=== PATIENT | female | born 1980 | race Caucasian/White ===

== ENCOUNTER 2017-06-09 11:03 | Emergency (ER) | payer SELFPAY ==
[~2017-06-09] VITALS: Ht 170.2 cm; Wt 80.7 kg
[~2017-06-09 11:03] MED LIST: ALPR0.5T PO; BUTA1CAP3; CARI250T PO; CYCL10TA9; ONDA4TAB10; PROC-1 PO; SERT100T PO
[2017-06-09] MEDS ORDERED: PROCHLORPERAZINE 10 MG/2ML INJ (COMPAZINE) IM ONE (12:45)
[2017-06-09] MEDS ORDERED: diphenhydrAMINE 50 MG/ML INJ (BENADRYL) IM ONE (12:45)
[2017-06-09] MEDS ORDERED: KETOROLAC 60 MG/2 ML VIAL IM ONE (12:45)
--- NOTE | 2017-06-09 12:48 | ED Headache ---
General Chief Complaint: Head/Cervical Problems Stated Complaint: HEADACHE Nursing Triage Note: AMBULATED TO TRIAGE WITHOUT DIFFICULTY. COMPLAINS OF HEADACHE X6 YEARS THAT HAS BECAME WORSE. HAS NOT TAKEN ANY MEDCIATIONS TO HELP THE HEADACHE ET STATES IT DOES NOT HELP. PT HAS A HX OF HAVING A BRAIN TUMOR REMOVED. Nursing Sepsis Screen: No Definite Risk Source: patient Exam Limitations: no limitations History of Present Illness Date Seen by Provider: Jun 09, 2017 Time Seen by Provider: 12:46 Initial Comments To ER with reports of a headache, nausea, photophobia without vomiting worse than usual for 2-3 days. No history of head injury. 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 Starting 6 years ago she began having frequent headaches. A CT scan found this followed cyst. However since removal of colloid cyst 5 years ago she's had persistent headaches. She states that she's been on a plethora of migraine medication without significant improvement. Timing/Duration: other Severity/Quality: moderate Location: frontal Associated Symptoms: No confusion, No fatigue, nausea/vomiting Allergies and Home Medications Allergies Coded Allergies: Sulfa (Sulfonamide Antibiotics) (Verified Allergy, Unknown, 09/08/15) Home Medications Alprazolam 0.5 Mg Tablet, 0.5 MG PO for ANXIETY, (Reported) Prochlorperazine Maleate 10 Mg Tablet, 10 MG PO Q12H PRN for NAUSEA/VOMITING Prescribed by: HEATHER JONES on 11/08/15 1133 Sertraline HCl 100 Mg Tablet, 100 MG PO DAILY, (Reported) Patient Home Medication List Home Medication List Reviewed: Yes Constitutional: see HPI Eyes: See HPI, Photophobia Ears, Nose, Mouth, Throat: no symptoms reported Respiratory: no symptoms reported Gastrointestinal: nausea Genitourinary: no symptoms reported Musculoskeletal: no symptoms reported Skin: no symptoms reported Psychiatric/Neurological: See HPI Past Rxglvda-Olzywd-Ccxctl Hx Patient Social History Alcohol Use: Denies Use Recreational Drug Use: No Smoking Status: Current Everyday Smoker Type Used: Cigarettes Recent Foreign Travel: No Contact w/Someone Who Travel: No Recent Infectious Disease Expo: No Recent Hopitalizations: No Surgeries Surgeries: Section, Gallbladder, Hysterectomy Neurological Neurological Disorders: Headaches /Migraines Reproductive System Hx Reproductive Disorders: No Psychosocial Behavioral Health Disorders: Anxiety, Depression Family Medical History Significant Family History: No Pertinent Family Hx Physical Exam Vital Signs Vital Signs - First Documented 06/09/17 06/09/17 12:30 13:58 Temp 98.1 Pulse 66 Resp 18 B/P (MAP) 114/79 (91) Pulse Ox 98 O2 Delivery Room Air Capillary Refill : Less Than 3 Seconds General Appearance: WD/WN, no apparent distress HEENT: PERRL/EOMI, normal ENT inspection Neck: non-tender, full range of motion Cardiovascular: regular rate, rhythm, no murmur Respiratory: normal breath sounds, no respiratory distress, no accessory muscle use Gastrointestinal: normal bowel sounds, non tender, soft Extremities: normal range of motion, non-tender Psychiatric: alert, oriented x 3 Crainal Nerves: normal hearing, normal speech, PERRL Skin: normal color, warm/dry Progress/Results/Core Measures Results/Orders My Orders Orders - HEATHER JONES APRN Ketorolac Injection (Toradol Injection) (06/09/17 12:45) Prochlorperazine Injection (Compazine In (06/09/17 12:45) Diphenhydramine Injection (Benadryl Inje (06/09/17 12:45) Ct Head Wo (06/09/17 12:46) Medications Given in ED Current Medications Medications Dose Ordered Sig/Sanjana Route Start Time Stop Time Status Last Admin Dose Admin Diphenhydramine HCl 25 mg ONCE ONCE IM 06/09/17 12:45 06/09/17 12:46 DC 06/09/17 13:32 25 MG Ketorolac Tromethamine 60 mg ONCE ONCE IM 06/09/17 12:45 06/09/17 12:46 DC 06/09/17 13:31 60 MG Prochlorperazine Edisylate 10 mg ONCE ONCE IM 06/09/17 12:45 06/09/17 12:46 DC 06/09/17 13:32 10 MG Vital Signs/I&O Vital Sign - Last 12Hours 06/09/17 06/09/17 06/09/17 06/09/17 12:30 13:31 13:32 13:32 Temp 98.1 98.1 98.1 98.1 Pulse 66 Resp 18 B/P (MAP) 114/79 (91) Pulse Ox 98 06/09/17 13:58 Temp 98.1 Pulse 67 Resp 18 B/P (MAP) 130/95 (91) Pulse Ox 98 O2 Delivery Room Air Blood Pressure Mean: 91 Departure Impression Impression: Primary Impression: Headache Disposition: 01 HOME, SELF-CARE Condition: Stable Departure-Patient Inst. Decision time for Depature: 13:19 Referrals: EUGENE LEBRON DO (PCP/Family) Primary Care Physician Patient Instructions: Headache, Adult (DC) Add. Discharge Instructions: 1. Follow-up with your doctor this week. Return to ER for any worsening. All discharge instructions reviewed with patient and/or family. Voiced understanding. HEATHER JONES APRN Jun 09, 2017 12:48
--- NOTE | 2017-06-09 13:19 | Diagnostic Imaging Report ---
PROCEDURE: CT head without contrast. TECHNIQUE: Multiple contiguous axial images were obtained through the brain without the use of intravenous contrast. INDICATION: Headache. COMPARISON: Comparison is made with prior head CT from 09/08/2015. FINDINGS: The ventricular size and sulcal pattern appear stable. There are postop changes of craniotomy. The postsurgical changes with mild to moderate dilatation of the left frontal horn appears similar to prior exam. Left to right shift of the septum pellucidum is unchanged. There is no sulcal effacement. No midline shift or hemorrhage is detected. The cisterns are patent. The visualized paranasal sinuses are clear. IMPRESSION: Stable noncontrast CT of the brain when compared to prior exam from 09/08/2015. No acute abnormalities detected. Dictated by: Dictated on workstation # [id number]
[2017-06-09 13:58] VITALS: BP 130/95
== END 2017-06-09 13:58 | disposition home or self-care (01) ==
LOC: EDUNIT# 11:03 → ER 11:04
DX: R51 Headache (principal); F41.9 Anxiety disorder, unspecified; F32.9 Major depressive disorder, single episode, unspecified; F17.210 Nicotine dependence, cigarettes, uncomplicated; Z87.59 Personal history of other complications of pregnancy, childbirth and the puerperium; Z90.710 Acquired absence of both cervix and uterus; Z88.2 Allergy status to sulfonamides
CPT/HCPCS: 70450; 96372

== ENCOUNTER 2018-07-28 11:32 | Emergency (ER) | payer OTHER ==
[~2018-07-28] VITALS: Ht 170.2 cm; Wt 81.6 kg
--- OUTSIDE RECORDS SUMMARY | 2018-07-28 11:37 | XMS REPORT ---
Author Author NAIDA MENON Organization [facility] Address [address] [place] [address] Care Team Providers Care Sales Marketing Manager Name Role Phone NAIDA MENON Unavailable PROBLEMS Type Condition ICD9-CM Code [id number] Code Onset Dates Condition Status SNOMED Code Problem Chronic tension-type headache, not intractable G44.229 Active 289294179 Problem Anxiety F41.9 Active 11656164 ALLERGIES Substance Reaction Event Type Date Status Sulfur Unknown Drug Allergy Feb, Active ENCOUNTERS Encounter Location Date Diagnosis [address] [id number] July, Anxiety F41.9 [place] [id number] [place] [id number] July, [address] [id number] July, Anxiety F41.9 [place] [id number] [place] [address] [id number] Jun, Anxiety F41.9 ; High risk medication use Z79.899 ; Chronic tension-type headache, not intractable G44.229 ; Tobacco abuse Z72.0 and Tobacco abuse counseling Z71.[address] [id number] May, Anxiety F41.9 ; High risk medication use Z79.899 ; Chronic tension-type headache, not intractable G44.229 and Controlled substance agreement signed Z79.[address] [address] Feb, Anxiety F41.9 ; Chronic daily headache R51 ; General medical exam Z00.00 and Viral illness B34.9 [place] [address] [place] [id number] [place] [address] Dec, [facility] [id number], [place] [address] Dec, [facility] [id number] [address] Jan, [facility] [id number], [place] [address] Oct, [facility] [id number], [place] [address] Oct, [facility] [id number], [place] [address] Sep, [facility] [id number], [place] [address] Oct, [facility] [id number], [place] [address] Aug, IMMUNIZATIONS No Known Immunizations SOCIAL HISTORY Never Assessed REASON FOR VISIT Establish Care, Flu like symptoms PLAN OF CARE Activity Details Follow Up 4-5 Weeks Reason:anxiety VITAL SIGNS Height 67in in 2017-03-12 Weight 178.5 lbs 2017-03-12 Temperature 97.3 degrees Fahrenheit 2017-03-12 Heart Rate 100 bpm 2017-03-12 Respiratory Rate 20 2017-03-12 BMI 27.95 kg/m2 2017-03-12 Blood pressure systolic 112 mmHg 2017-03-12 Blood pressure diastolic 72 mmHg 2017-03-12 MEDICATIONS Medication Instructions Dosage Frequency Start Date End Date Duration Status Xanax 0.5 MG Orally Twice a day 1 tablet 12h Active Flexeril 10 MG Orally Three times a day 1 tablet as needed 8h Active Zoloft 150 MG Orally Once a day 1 tablet 24h Active RESULTS Name Result Date Reference Range INFLUENZA A & B (IN HOUSE) 2017-03-12 INFLUENZA A Negative INFLUENZA B Negative Control + Lot # [id number] Exp date 05/27/2019 PROCEDURES Procedure Date Ordered Result Body Site INFLUENZA ASSAY W/OPTIC Mar 12, 2017 INSTRUCTIONS MEDICATIONS ADMINISTERED No Known Medications MEDICAL (GENERAL) HISTORY Type Description Date Medical History Anxeity Medical History Depression Surgical History 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
--- OUTSIDE RECORDS SUMMARY | 2018-07-28 11:37 | XMS REPORT ---
Author Author MANUEL DODSON Organization [facility] Address [address] [place] [address] Care Team Providers Care Classified Advertising Manager Name Role Phone MANUEL DODSON Unavailable PROBLEMS Type Condition ICD9-CM Code XSS41-TD Code Onset Dates Condition Status SNOMED Code Problem Chronic tension-type headache, not intractable G44.229 Active 898187023 Problem Anxiety F41.9 Active 78538602 ALLERGIES Substance Reaction Event Type Date Status Sulfur hives Drug Allergy Jun, Active ENCOUNTERS Encounter Location Date Diagnosis [place] [id number] [place] [id number] July, Anxiety F41.9 [facility] [id number] [place] [address] [id number] July, [place] [id number] [place] [address] [id number] July, Anxiety F41.9 [place] [id number] [place] [address] [id number] Jun, Anxiety F41.9 ; High risk medication use Z79.899 ; Chronic tension-type headache, not intractable G44.229 ; Tobacco abuse Z72.0 and Tobacco abuse counseling Z71.6 [facility] [address] [id number] May, Anxiety F41.9 ; High risk medication use Z79.899 ; Chronic tension-type headache, not intractable G44.229 and Controlled substance agreement signed Z79.899 [place] [id number] [place] [address] Feb, Anxiety F41.9 ; Chronic daily headache R51 ; General medical exam Z00.00 and Viral illness B34.9 [place] [id number], [place] [address] Dec, [facility] [id number], [place] [address] Dec, [facility] [id number], [place] [address] Jan, [facility] [id number], [place] [address] Oct, [facility] [id number], [place] [address] Oct, [facility] [id number], [place] [address] Sep, [facility] [id number], [place] [address] Oct, [facility] [id number], [place] [address] Aug, IMMUNIZATIONS No Known Immunizations SOCIAL HISTORY Never Assessed REASON FOR VISIT Anxiety follow up and refills Josh DOLAN PLAN OF CARE Activity Details Follow Up 3 Months and prn Reason:CHM Anxiety VITAL SIGNS Height 67in in 2017-06-18 Weight 182.2 lbs 2017-06-18 Temperature 97.8 degrees Fahrenheit 2017-06-18 Heart Rate 78 bpm 2017-06-18 Respiratory Rate 16 2017-06-18 BMI 28.53 kg/m2 2017-06-18 Blood pressure systolic 138 mmHg 2017-06-18 Blood pressure diastolic 82 mmHg 2017-06-18 MEDICATIONS Medication Instructions Dosage Frequency Start Date End Date Duration Status Xanax 0.5 MG Orally Once a day 1 tablet 24h 28 days Active Zoloft 150 MG Orally Once a day 1 tablet 24h 0 Active Zanaflex 4 MG Orally Three times a day 2 tablet as needed 8h May, Jun, 0 days Active RESULTS No Results PROCEDURES No Known procedures INSTRUCTIONS MEDICATIONS ADMINISTERED No Known Medications MEDICAL (GENERAL) HISTORY Type Description Date Medical History Anxeity Medical History Depression Surgical History 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
--- OUTSIDE RECORDS SUMMARY | 2018-07-28 11:37 | XMS REPORT ---
Author Author MANUEL DODSON Organization [facility] Address [address] [place] [address] Care Team Providers Care Grinding Wheel Dresser Name Role Phone MANUEL DODSON Unavailable PROBLEMS Type Condition ICD9-CM Code [id number] Code Onset Dates Condition Status SNOMED Code Problem Chronic tension-type headache, not intractable G44.229 Active 313853406 Problem Anxiety F41.9 Active 78269950 ALLERGIES No Information ENCOUNTERS Encounter Location Date Diagnosis [place] [id number] [place] [id number] July, Anxiety F41.9 [place] [id number] [place] [address] [id number] July, [place] [id number] [place] [address] [id number] July, Anxiety F41.[address] [id number] Jun, Anxiety F41.9 ; High risk medication use Z79.899 ; Chronic tension-type headache, not intractable G44.229 ; Tobacco abuse Z72.0 and Tobacco abuse counseling Z71.6 [place] [id number] [place] [address] [id number] May, Anxiety F41.9 ; High risk medication use Z79.899 ; Chronic tension-type headache, not intractable G44.229 and Controlled substance agreement signed Z79.899 [facility] [id number] [place] [address] Feb, Anxiety F41.9 ; Chronic daily headache R51 ; General medical exam Z00.00 and Viral illness B34.9 [facility] [id number] [place] [address] Dec, [facility] [id number], [place] [address] Dec, [facility] [id number], [place] [address] Jan, [facility] [id number], [place] [address] Oct, [facility] [id number], [place] [address] Oct, [facility] [id number], [place] [address] Sep, [facility] [id number], [place] [address] Oct, [facility] [id number], [place] [address] Aug, IMMUNIZATIONS No Known Immunizations SOCIAL HISTORY Never Assessed REASON FOR VISIT Refill request PLAN OF CARE VITAL SIGNS MEDICATIONS Medication Instructions Dosage Frequency Start Date End Date Duration Status Zoloft 150 MG Orally Once a day 1 tablet 24h 0 Active Xanax 0.5 MG Orally Once a day 1 tablet 24h 28 days Active RESULTS No Results PROCEDURES No [...]
--- OUTSIDE RECORDS SUMMARY | 2018-07-28 11:37 | XMS REPORT ---
Author Author MANUEL DODSON Organization [facility] Address [address] [place] [address] Care Team Providers Care Size Maker Name Role Phone MANUEL DODSON Unavailable PROBLEMS Type Condition ICD9-CM Code [id number] Code Onset Dates Condition Status SNOMED Code Problem Chronic tension-type headache, not intractable G44.229 Active 895356939 Problem Anxiety F41.9 Active 31005028 ALLERGIES No Information ENCOUNTERS Encounter Location Date Diagnosis [address] [id number] July, Anxiety F41.9 [place] [id number] [place] [address] [id number] July, [place] [id number] [place] [address] [id number] July, Anxiety F41.[address] [id number] Jun, Anxiety F41.9 ; High risk medication use Z79.899 ; Chronic tension-type headache, not intractable G44.229 ; Tobacco abuse Z72.0 and Tobacco abuse counseling Z71.6 [place] [id number] [place] [address] [id number] May, Anxiety F41.9 ; High risk medication use Z79.899 ; Chronic tension-type headache, not intractable G44.229 and Controlled substance agreement signed Z79.899 [facility] [id number] [place] [address] Feb, Anxiety F41.9 ; Chronic daily headache R51 ; General medical exam Z00.00 and Viral illness B34.9 [facility] [id number] [place] [address] Dec, [facility] [id number] [address] Dec, [facility] [address] [address] Jan, [facility] [id number] [address] Oct, [facility] [id number] [address] Oct, [facility] [address] [address] Sep, [facility] [id number] [address] Oct, [facility] [id number] [address] Aug, IMMUNIZATIONS No Known Immunizations SOCIAL HISTORY Never Assessed REASON FOR VISIT Report Medication Prescription PLAN OF CARE VITAL SIGNS MEDICATIONS Unknown Medications RESULTS No Results PROCEDURES No Known procedures [...]
--- OUTSIDE RECORDS SUMMARY | 2018-07-28 11:37 | XMS REPORT ---
Author Author MANUEL DODSON Organization [facility] Address [address] [place] [address] Care Team Providers Care Boot And Shoe Laborer Name Role Phone MANUEL DODSON Unavailable PROBLEMS Type Condition ICD9-CM Code HSR54-JN Code Onset Dates Condition Status SNOMED Code Problem Chronic tension-type headache, not intractable G44.229 Active 911897820 Problem Anxiety F41.9 Active 48444722 ALLERGIES Substance Reaction Event Type Date Status Sulfur Unknown Drug Allergy May, Active ENCOUNTERS Encounter Location Date Diagnosis [place] [id number] [place] [address] [id number] July, Anxiety F41.9 [facility] [id number] [place] [address] [id number] July, [place] [id number] [place] [address] [id number] July, Anxiety F41.9 [address] [id number] [place] [address] [id number] Jun, Anxiety F41.9 ; High risk medication use Z79.899 ; Chronic tension-type headache, not intractable G44.229 ; Tobacco abuse Z72.0 and Tobacco abuse counseling Z71.6 [place] [address] [place] [address] [id number] May, Anxiety F41.9 ; High risk medication use Z79.899 ; Chronic tension-type headache, not intractable G44.229 and Controlled substance agreement signed Z79.899 [place] [id number] [place] [address] Feb, Anxiety F41.9 ; Chronic daily headache R51 ; General medical exam Z00.00 and Viral illness B34.9 [place] [id number] [address] Dec, [facility] [id number] [address] Dec, [facility] [id number] [address] Jan, [facility] [id number] [address] Oct, [facility] [id number] [address] Oct, [facility] [address] [place] [address] Sep, [facility] [id number] [address] Oct, [facility] [id number] [address] Aug, IMMUNIZATIONS No Known Immunizations SOCIAL HISTORY Never Assessed REASON FOR VISIT wanting to transition care, established with [facility] in February, but states she cannot get in fast enough there. She is currently out of Xanax and needing a refill. ginger Murray PLAN OF CARE Activity Details Follow Up 4 Weeks Reason:CHM Anxiety fu VITAL SIGNS Height 67in in 2017-05-21 Weight 178.2 lbs 2017-05-21 Temperature 98.2 degrees Fahrenheit 2017-05-21 Heart Rate 118 bpm 2017-05-21 Respiratory Rate 16 2017-05-21 BMI 27.91 kg/m2 2017-05-21 Blood pressure systolic 142 mmHg 2017-05-21 Blood pressure diastolic 80 mmHg 2017-05-21 MEDICATIONS Medication Instructions Dosage Frequency Start Date End Date Duration Status Zoloft 150 MG Orally Once a day 1 tablet 24h 0 Active Zanaflex 4 MG Orally Three times a day 1 tablet as needed 8h May, May, 0 days Active Xanax 0.5 MG Orally Once a day 1 tablet 24h 28 days Active RESULTS No Results PROCEDURES Procedure Date Ordered Result Body Site COMPLETE CBC W/AUTO DIFF WBC May 21, 2017 COMPREHEN METABOLIC PANEL May 21, 2017 VENIPUNCT, ROUTINE* May 21, 2017 LIPID PANEL May 21, 2017 ASSAY THYROID STIM HORMONE May 21, 2017 No Charge May 21, 2017 DRUG TEST PRSMV DIR OPT OBS May 21, 2017 INSTRUCTIONS MEDICATIONS ADMINISTERED No Known Medications MEDICAL (GENERAL) HISTORY Type Description Date Medical History Anxeity Medical History Depression Surgical History 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
--- OUTSIDE RECORDS SUMMARY | 2018-07-28 11:37 | XMS REPORT ---
Author Author MANUEL DODSON Organization [facility] Address [address] [place] [address] Care Team Providers Care Tobacco Stripping Machine Operator Name Role Phone MANUEL DODSON Unavailable PROBLEMS Type Condition ICD9-CM Code PLH72-FU Code Onset Dates Condition Status SNOMED Code Problem Chronic tension-type headache, not intractable G44.229 Active 402263216 Problem Anxiety F41.9 Active [id number] ALLERGIES No Information ENCOUNTERS Encounter Location Date Diagnosis [address] [id number] July, Anxiety F41.9 [place] [id number] [place] [id number] July, [place] [id number] [place] [id number] July, Anxiety F41.[address] [id number] Jun, Anxiety F41.9 ; High risk medication use Z79.899 ; Chronic tension-type headache, not intractable G44.229 ; Tobacco abuse Z72.0 and Tobacco abuse counseling Z71.6 [place] [id number] [place] [id number] May, Anxiety F41.9 ; High risk medication use Z79.899 ; Chronic tension-type headache, not intractable G44.229 and Controlled substance agreement signed Z79.899 [facility] [id number] [place] [phone] Feb, Anxiety F41.9 ; Chronic daily headache R51 ; General medical exam Z00.00 and Viral illness B34.9 [facility] [id number] [place] [phone] Dec, [facility] [id number] [address] Dec, [facility] [id number] [place] [address] Jan, [facility] [id number] [address] Oct, [facility] [id number], [place] [address] Oct, [facility] [id number] [place] [address] Sep, [facility] [id number] [place] [address] Oct, [facility] [id number] [place] [address] Aug, IMMUNIZATIONS No Known Immunizations SOCIAL HISTORY Never Assessed REASON FOR VISIT Controlled Med Refill PLAN OF CARE VITAL SIGNS MEDICATIONS Medication Instructions Dosage Frequency Start Date End Date Duration Status Xanax 0.5 MG Orally Once a day, must last 28 days 1 tablet 0 days Active RESULTS No Results PROCEDURES [...]
--- OUTSIDE RECORDS SUMMARY | 2018-07-28 11:37 | XMS REPORT | Clinical Summary ---
Author Author [facility] Organization [facility] Address Unknown Phone Unavailable Care Team Providers Care Project Manager Name Role Phone Zain Buitrago MD Unavailable Andrea Hudson DO PCP Peir Evans MD Unavailable Source Comments Some departments are not documenting in the electronic medical record. If you do not see the information that you expected, contact Release of Information in the Health Information Management department at [phone] for further assistance in locating additional records.[facility] Allergies Comments Active Allergy Reactions Severity Noted Date Sulfa (Sulfonamide HIVES 08/24/2012 Antibiotics) Medications End Date Status Medication Sig Dispensed Refills Start Date Active ALPRAZolam (XANAX) 0.5 mg Take 0.5 mg 0 tablet by mouth as Needed. Active cyclobenzaprine Take 10 mg by 0 (FLEXERIL) 10 mg tablet mouth three times daily as needed for Muscle Cramps. Active amitriptyline (ELAVIL) 25 Take 4 Tabs 120 Tab 5 201 mg tablet by mouth at 7 bedtime daily. Take 3 tablets at bedtime for week, then 4 tablets at bedtime for migraine prevention. Active sertraline (ZOLOFT) 100 Take 1.5 135 tablet 3 10/31/201 mg tablet tablets by 7 mouth at bedtime daily. Active prochlorperazine maleate Take 1 tablet 30 tablet 5 (COMPAZINE) 10 mg tablet by mouth 7 every 6 hours as needed. 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 Headache(784.0) 08/26/2012 Resolved Problems Problem Noted Date Resolved Date Colloid cyst of brain 09/10/2012 04/18/2016 Family History Medical History Relation Name Comments Hypertension Brother Mental Illness Brother Seizures Brother Depression Father Depression Mother Heart Disease Mother Hypertension Mother Seizures Mother Asthma Sister Mental Illness Sister Seizures Sister Hypertension Sister Relation Name Status Comments Brother Alive Brother Alive Brother Alive Brother Alive Father Alive Mother Alive Sister Alive Sister Alive Sister Alive Social History Date Tobacco Use Types Packs/Day Years Used Current Every Day Smoker Cigarettes 0.5 15 Smokeless Tobacco: Never Used Alcohol Use Drinks/Week oz/Week Comments No 0 Standard 0.0 quit 2006 drinks or equivalent Sex Assigned at Date Recorded Not on file Industry Job Start Date Occupation Not on file Not on file Not on file Travel End Travel History Travel Start No recent travel history available. Last Filed Vital Signs Time Taken Vital Sign Reading 10/31/2016 3:07 PM CDT Blood Pressure 125/89 10/31/2016 3:07 PM CDT Pulse 84 09/12/2012 12:29 PM CDT Temperature 36.7 C (98.1 F) - Respiratory Rate - 09/12/2012 12:29 PM CDT Oxygen Saturation 96% - Inhaled Oxygen - Concentration 10/31/2016 3:07 PM CDT Weight 86.6 kg (191 lb) 10/31/2016 3:07 PM CDT Height 170.2 cm (5' 7") 10/31/2016 3:07 PM CDT Body Mass Index 29.91 Plan of Treatment Health Maintenance Due Date Last Done Comments PHYSICAL (COMPREHENSIVE) 1989 EXAM HIV SCREENING 1997 DTAP/TDAP VACCINES (1 - 01/03/2000 Tdap) CERVICAL CANCER SCREENING 01/03/2012 INFLUENZA VACCINE 12/15/2018 12/12/2009 Results Not on filefrom Last 3 Months Insurance Type Payer Benefit Subscriber ID Effective Phone Address Plan / Dates Group AETNA AETNA xxxxxxxxxx [id number] CHOICE POS resent II Advance Directives Patient has advance care planning documents, and code status on file. For more information, please contact: [facility] [address] [place] [address] Date Inactivated Comments Code Status Date Activated 09/12/2012 3:46 PM Full Code 09/10/2012 1:35 PM Provider has discussed Code Status No, discussion not w/Patient or Family? necessary based on Dx
--- NOTE | 2018-07-28 11:58 | ED Headache ---
General Chief Complaint: Head/Cervical Problems Stated Complaint: MIGRAINE Nursing Triage Note: PT PRESENTS TO ED WITH COMPLAINTS OF SINUS PRESSURE X 2 WEEKS AND MIGRAINE, HEAD PRESSURE STARTING 2 DAYS AGO. Nursing Sepsis Screen: No Definite Risk Source: patient Exam Limitations: no limitations History of Present Illness Date Seen by Provider: July 28, 2018 Time Seen by Provider: 11:56 Initial Comments To ER with reports of frontal headache sinus pressure for about 2 weeks. She's not had any nasal discharge or fevers. For the past 2 days she's had photophobia and nausea without vomiting and pressure in her head. She has a history of a colloid cyst with surgical resection in about 2012. She does have a history of migraines. Timing/Duration: increasing Severity/Quality: constant, pressure Location: frontal Prior Headaches/Recent Trauma: occasional headaches Associated Symptoms: No confusion, No fatigue, No facial pain, No fever/chills , No flushing; nausea/vomiting; No nasal congestion, No nasal drainage Allergies and Home Medications Allergies Coded Allergies: Sulfa (Sulfonamide Antibiotics) (Verified Allergy, Unknown, 09/08/15) Home Medications Alprazolam 0.5 Mg Tablet, 0.5 MG PO for ANXIETY, (Reported) Prochlorperazine Maleate 10 Mg Tablet, 10 MG PO Q12H PRN for NAUSEA/VOMITING Prescribed by: HEATHER JONES on 11/08/15 1133 Sertraline HCl 100 Mg Tablet, 100 MG PO DAILY, (Reported) Patient Home Medication List Home Medication List Reviewed: Yes Review of Systems Review of Systems Constitutional: see HPI; No chills, No fever Eyes: See HPI, Blurred Vision (intermittently) Ears, Nose, Mouth, Throat: no symptoms reported Respiratory: no symptoms reported Cardiovascular: no symptoms reported Gastrointestinal: nausea Genitourinary: no symptoms reported Musculoskeletal: no symptoms reported Psychiatric/Neurological: Headache Past Fchctsf-Hbsqdp-Gcunkw Hx Patient Social History Alcohol Use: Past History Recreational Drug Use: Yes Drug of Choice: MARIJUANA Smoking Status: Current Everyday Smoker Type Used: Cigarettes Recent Foreign Travel: No Contact w/Someone Who Travel: No Recent Infectious Disease Expo: No Recent Hopitalizations: No Physical Abuse: No Sexual Abuse: No Mistreated: No Fear: No Past Medical History Surgeries: Yes (colloid cyst removal from 3rd ventricle) Section, Gallbladder, Hysterectomy Respiratory: No Cardiac: No Neurological: Yes (HX OF COLLOID CYST ) Headaches /Migraines Reproductive Disorders: No Genitourinary: No Gastrointestinal: No Musculoskeletal: No Endocrine: No HEENT: No Cancer: No Psychosocial: Yes Anxiety, Depression Integumentary: No Blood Disorders: No Family Medical History No Pertinent Family Hx Physical Exam Vital Signs Vital Signs - First Documented 07/28/18 11:47 Temp 97.7 Pulse 87 Resp 20 B/P (MAP) 138/94 (109) Pulse Ox 96 Capillary Refill : Less Than 3 Seconds Height, Weight, BMI Height: 5'7.00" Weight: 180lbs. oz. 81.340001dc; BMI Method:Stated General Appearance: WD/WN, no apparent distress HEENT: PERRL/EOMI, normal ENT inspection, TMs normal Neck: non-tender, full range of motion Respiratory: normal breath sounds, no respiratory distress, no accessory muscle use Gastrointestinal: normal bowel sounds, non tender, soft Psychiatric: alert, oriented x 3 Crainal Nerves: normal hearing, normal speech, PERRL Skin: normal color, warm/dry Progress/Results/Core Measures Results/Orders My Orders Orders - HEATHER JONES APRN Ct Head Wo (07/28/18 11:50) Ketorolac Injection (Toradol Injection) (07/28/18 12:00) Diphenhydramine Injection (Benadryl Inje (07/28/18 12:00) Prochlorperazine Injection (Compazine In (07/28/18 12:00) Medications Given in ED Current Medications Medications Dose Ordered Sig/Sanjana Route Start Time Stop Time Status Last Admin Dose Admin Diphenhydramine HCl 25 mg ONCE ONCE IM 07/28/18 12:00 07/28/18 12:01 DC 07/28/18 12:00 25 MG Ketorolac Tromethamine 30 mg ONCE ONCE IM 07/28/18 12:00 07/28/18 12:01 DC 07/28/18 12:00 30 MG Prochlorperazine Edisylate 10 mg ONCE ONCE IM 07/28/18 12:00 07/28/18 12:01 DC 07/28/18 11:59 10 MG Vital Signs/I&O 07/28/18 11:47 Temp 97.7 Pulse 87 Resp 20 B/P (MAP) 138/94 (109) Pulse Ox 96 Blood Pressure Mean: 109 Departure Impression Primary Impression: Headache Disposition: 01 HOME, SELF-CARE Condition: Stable Departure-Patient Inst. Decision time for Depature: 12:26 Referrals: EUGENE LEBRON DO (PCP/Family) Primary Care Physician Patient Instructions: Headache, Adult (DC) Add. Discharge Instructions: 1. Return to ER for any concerns 2. Follow-up with your doctor next week All discharge instructions reviewed with patient and/or family. Voiced understanding. Work/School Note: Work Release Form Date Seen in the Emergency Department: July 28, 2018 Return to Work: July 29, 2018 HEATHER JONES APRN July 28, 2018 11:57
[2018-07-28] MEDS ORDERED: diphenhydrAMINE 50 MG/ML INJ (BENADRYL) IM ONE (12:00)
[2018-07-28] MEDS ORDERED: PROCHLORPERAZINE 10 MG/2ML INJ (COMPAZINE) IM ONE (12:00)
[2018-07-28] MEDS ORDERED: KETOROLAC 30 MG/ML VIAL IM ONE (12:00)
--- NOTE | 2018-07-28 12:30 | Diagnostic Imaging Report ---
PROCEDURE: CT head without contrast. TECHNIQUE: Multiple contiguous axial images were obtained through the brain without the use of intravenous contrast. Auto Exposure Controls were utilized during the CT exam to meet ALARA standards for radiation dose reduction. INDICATION: Frontal headache. History of previous colloid cyst resection. COMPARISON: 06/09/2017. FINDINGS: Again identified is a focal area of decreased attenuation interposed between the anterior horns of the lateral ventricles in the region of the corpus callosum. This is stable compared to prior exam and may be a sequela of previous colloid cyst resection. Ventricles and cortical sulci are otherwise normal in size and shape. There is no new mass effect or midline shift. There is no new loss of hdz-white matter junction differentiation to suggest acute infarct. There is no evidence of intra- or extra-axial intracranial hemorrhage. Patient is status post previous frontal craniotomy. Bone flap is in satisfactory position. Bony calvarium is otherwise intact. Included portions of the paranasal sinuses show scattered mucosal thickening. Mastoid air cells are clear. IMPRESSION: 1. Stable CT of the head. No new acute intracranial abnormality. No CT evidence of acute infarct, mass, nor hemorrhage. Dictated by: Dictated on workstation # [id number]
[2018-07-28 12:40] VITALS: BP 128/86
== END 2018-07-28 12:40 | disposition home or self-care (01) ==
LOC: EDUNIT# 11:32 → ER 11:33
DX: R51 Headache (principal); F41.9 Anxiety disorder, unspecified; F32.9 Major depressive disorder, single episode, unspecified; F12.10 Cannabis abuse, uncomplicated; F17.210 Nicotine dependence, cigarettes, uncomplicated; Z90.710 Acquired absence of both cervix and uterus; Z86.69 Personal history of other diseases of the nervous system and sense organs; Z98.890 Other specified postprocedural states; Z88.2 Allergy status to sulfonamides
CPT/HCPCS: 70450; 96372

== ENCOUNTER 2019-04-01 10:10 | Emergency (ER) | payer OTHER ==
[~2019-04-01] VITALS: Ht 170 cm; Wt 82.0 kg
--- NOTE | 2019-04-01 10:20 | ED Chest Pain ---
General Stated Complaint: CHEST PAIN Source: patient Exam Limitations: no limitations History of Present Illness Date Seen by Provider: Apr 01, 2019 Time Seen by Provider: 10:16 Initial Comments 39-year-old female presents with epigastric/lower sternal "chest pain" his been there for about a week. Gets worse with deep breath. She reports that woke her up last night. She does not have any shortness of breath. Patient has had a cough, runny nose for over a week or so. She denies any fevers, chills. She denies any wheezing. She did not get diaphoretic with the pain. Pain is not radiating into her arm or her neck. Maybe a little bit of pain in her back. No other complaints at this time Allergies and Home Medications Allergies Coded Allergies: Sulfa (Sulfonamide Antibiotics) (Verified Allergy, Unknown, 09/08/15) Home Medications Alprazolam 0.5 Mg Tablet, 0.5 MG PO for ANXIETY, (Reported) Sertraline HCl 100 Mg Tablet, 100 MG PO DAILY, (Reported) Patient Home Medication List Home Medication List Reviewed: Yes Review of Systems Review of Systems Constitutional: No chills, No dizziness, No fever Respiratory: Cough; Denies Orthopnea, Denies Shortness of Air Cardiovascular: Chest Pain; Denies Edema, Denies Irregular Heart Rate, Denies Lightheadedness, Denies Palpitations, Denies Syncope Gastrointestinal: Denies Abdominal Pain, Denies Diarrhea, Denies Nausea, Denies Vomiting Musculoskeletal: no symptoms reported Skin: no symptoms reported Psychiatric/Neurological: No Symptoms Reported Endocrine: No Symptoms Reported Past Ztpaefm-Jdlubt-Qdtzui Hx Past Med/Social Hx: Reviewed Nursing Past Med/Soc Hx Patient Social History Drug of Choice: MARIJUANA Type Used: Cigarettes Recent Hopitalizations: No Past Medical History Surgeries: Yes (colloid cyst removal from 3rd ventricle) Section, Gallbladder, Hysterectomy Respiratory: No Cardiac: No Neurological: Yes (HX OF COLLOID CYST ) Headaches /Migraines Reproductive Disorders: No Genitourinary: No Gastrointestinal: No Musculoskeletal: No Endocrine: No HEENT: No Cancer: No Psychosocial: Yes Anxiety, Depression Integumentary: No Blood Disorders: No Family Medical History No Pertinent Family Hx Physical Exam Vital Signs Vital Signs - First Documented 04/01/19 10:10 Temp 35.8 Pulse 86 Resp 22 B/P (MAP) 141/98 (112) Pulse Ox 99 O2 Delivery Room Air Capillary Refill : Height, Weight, BMI Height: 5'7.00" Weight: 180lbs. oz. 81.219588ua; BMI Method:Stated General Appearance: No Apparent Distress, WD/WN Respiratory: Chest Non Tender, Lungs Clear, Normal Breath Sounds Cardiovascular: Regular Rate, Rhythm, No Edema, Normal Peripheral Pulses, Other (mild tenderness lower sternum) Gastrointestinal: Soft, Tenderness (minimal tenderness epigastric) Extremity: Normal Capillary Refill, Normal Inspection Neurologic/Psychiatric: Alert, Oriented x3, No Motor/Sensory Deficits, Normal Mood/Affect Skin: Normal Color, Warm/Dry Progress/Results/Core Measures Results/Orders Lab Results Laboratory Tests Test 04/01/19 10:20 Range/Units White Blood Count 6.0 4.3-11.0 10^3/uL Red Blood Count 4.48 4.35-5.85 10^6/uL Hemoglobin 13.8 11.5-16.0 G/DL Hematocrit 41 35-52 % Mean Corpuscular Volume 92 80-99 FL Mean Corpuscular Hemoglobin 31 25-34 PG Mean Corpuscular Hemoglobin Concent 34 32-36 G/DL Red Cell Distribution Width 12.3 10.0-14.5 % Platelet Count 261 130-400 10^3/uL Mean Platelet Volume 10.1 7.4-10.4 FL Neutrophils (%) (Auto) 43 42-75 % Lymphocytes (%) (Auto) 39 12-44 % Monocytes (%) (Auto) 5 0-12 % Eosinophils (%) (Auto) 13 H 0-10 % Basophils (%) (Auto) 1 0-10 % Neutrophils # (Auto) 2.6 1.8-7.8 X 10^3 Lymphocytes # (Auto) 2.4 1.0-4.0 X 10^3 Monocytes # (Auto) 0.3 0.0-1.0 X 10^3 Eosinophils # (Auto) 0.8 H 0.0-0.3 10^3/uL Basophils # (Auto) 0.0 0.0-0.1 10^3/uL Prothrombin Time 13.4 12.2-14.7 SEC INR Comment 1.0 0.8-1.4 Activated Partial Thromboplast Time 31 24-35 SEC Sodium Level 140 135-145 MMOL/L Potassium Level 3.8 3.6-5.0 MMOL/L Chloride Level 104 98-107 MMOL/L Carbon Dioxide Level 27 21-32 MMOL/L Anion Gap 9 5-14 MMOL/L Blood Urea Nitrogen 11 7-18 MG/DL Creatinine 0.86 0.60-1.30 MG/DL Estimat Glomerular Filtration Rate > 60 BUN/Creatinine Ratio 13 Glucose Level 69 L 70-105 MG/DL Calcium Level 9.7 8.5-10.1 MG/DL Corrected Calcium 8.5-10.1 MG/DL Magnesium Level 1.7 1.6-2.4 MG/DL Total Bilirubin 0.3 0.1-1.0 MG/DL Aspartate Amino Transf (AST/SGOT) 18 5-34 U/L Alanine Aminotransferase (ALT/SGPT) 14 0-55 U/L Alkaline Phosphatase 70 40-136 U/L Troponin I < 0.028 <0.028 NG/ML Total Protein 7.8 6.4-8.2 GM/DL Albumin 4.8 H 3.2-4.5 GM/DL My Orders Orders - HERNANDEZ,ELHAM L DO Cbc With Automated Diff (04/01/19 10:21) Magnesium (04/01/19 10:21) Ekg Tracing (04/01/19 10:21) Comprehensive Metabolic Panel (04/01/19 10:21) Protime With Inr (04/01/19 10:21) Partial Thromboplastin Time (04/01/19 10:21) Monitor-Rhythm Ecg Trace Only (04/01/19 10:21) Ed Iv/Invasive Line Start (04/01/19 10:21) Troponin I (04/01/19 10:21) Aspirin Chewable Tablet (Baby Aspirin Ch (04/01/19 10:30) Chest Pa/Lat (2 View) (04/01/19 10:21) Abdomen/Kub 1view (04/01/19 10:21) Medications Given in ED Current Medications Medications Dose Ordered Sig/Sanjana Route Start Time Stop Time Status Last Admin Dose Admin Aspirin 324 mg ONCE ONCE PO 04/01/19 10:30 04/01/19 10:31 DC 04/01/19 10:27 324 MG Vital Signs/I&O 04/01/19 04/01/19 10:10 10:10 Temp 35.8 Pulse 86 Resp 22 B/P (MAP) 141/98 (112) Pulse Ox 99 O2 Delivery Room Air Room Air Progress Progress Note : Time: 11:03 Progress Note Patient's chest x-ray shows signs of possible sternal body fracture. However patient denies any trauma to the area. We discussed CT in the ER versus outpatient follow-up. At this time patient will follow-up for further evaluation outpatient setting since I will be no acute treatment for a sternal body fracture. I did discuss the importance of her to follow-up with this especially in light of no trauma that patient can recall. Patient does not have any abnormal lab findings, EKG or other symptoms at this time.. Departure Impression Primary Impression: Closed fracture of body of sternum Qualified Codes: S22.22XA - Fracture of body of sternum, initial encounter for closed fracture Disposition: 01 HOME, SELF-CARE Condition: Stable Departure-Patient Inst. Referrals: EUGENE LEBRON DO (PCP/Family) Primary Care Physician Patient Instructions: Chest Pain That Is Not Caused by the Heart (DC), Pleurit ic Chest Pain (DC), Acid Reflux (Gastroesophageal Reflux Disease), Adult (DC) Add. Discharge Instructions: Emergency department focuses on treating and ruling out life-threatening diseases. Whenever possible, a diagnosis is given. However, most patients are given an impression based on their history, physical exam, and workup during your brief time in the ER. Information about probable diagnosis and other educational material has been provided. Please take the time to read and under stand this information. It is very important that you follow up with a physician as discussed during the visit today. Failure to adhere to your follow-up instructions may lead to severe disability, injury, or so please make sure to keep your appointments or obtain one as requested. Please keep in mind the emergency department is not designed to your primary care or "family doctor" and nonurgent issues are best evaluated by an outpatient physician ELHAM HERNANDEZ DO Apr 01, 2019 10:20
[2019-04-01 10:29] LABS: BASOPHILS % (AUTO) 1 % (0-10); EOSINOPHILS # (AUTO) 0.8 10^3/uL (0.0-0.3); EOSINOPHILS % (AUTO) 13 % (0-10); HEMATOCRIT 41 % (35-52); HEMOGLOBIN 13.8 G/DL (11.5-16.0); LYMPHOCYTES # (AUTO) 2.4 X 10^3 (1.0-4.0); LYMPHOCYTES % (AUTO) 39 % (12-44); MEAN CORPUSCULAR HEMOGLOBIN 31 PG (25-34); MEAN CORPUSCULAR HGB CONC 34 G/DL (32-36); MEAN CORPUSCULAR VOLUME 92 FL (80-99); MEAN PLATELET VOLUME 10.1 FL (7.4-10.4); MONOCYTES # (AUTO) 0.3 X 10^3 (0.0-1.0); MONOCYTES % (AUTO) 5 % (0-12); NEUTROPHILS # (AUTO) 2.6 X 10^3 (1.8-7.8); NEUTROPHILS % (AUTO) 43 % (42-75); PLATELET COUNT 261 10^3/uL (130-400); RED CELL DISTRIBUTION WIDTH 12.3 % (10.0-14.5)
[2019-04-01] MEDS ORDERED: ASPIRIN 81 MG CHEW (CHILDREN'S ASA) PO ONE (10:30)
[2019-04-01 10:49] LABS: ALANINE AMINOTRANSFERASE 14 U/L (0-55); ALBUMIN 4.8 GM/DL (3.2-4.5); ALKALINE PHOSPHATASE 70 U/L (40-136); BILIRUBIN,TOTAL 0.3 MG/DL (0.1-1.0); BUN/CREATININE RATIO 13; CALCIUM 9.7 MG/DL (8.5-10.1); CARBON DIOXIDE 27 MMOL/L (21-32); CHLORIDE 104 MMOL/L (98-107); CREATININE SERUM 0.86 MG/DL (0.60-1.30); GFR ESTIMATED > 60; GLUCOSE 69 MG/DL (70-105); MAGNESIUM 1.7 MG/DL (1.6-2.4); POTASSIUM 3.8 MMOL/L (3.6-5.0); SODIUM 140 MMOL/L (135-145); TOTAL PROTEIN 7.8 GM/DL (6.4-8.2)
[2019-04-01 10:51] LABS: PROTHROMBIN TIME PATIENT 13.4 SEC (12.2-14.7)
--- NOTE | 2019-04-01 11:03 | Diagnostic Imaging Report ---
INDICATION: Epigastric pain and cough. TIME OF EXAM: 10:57 AM FINDINGS: Single view of the abdomen shows moderate stool throughout the colon. The bowel gas pattern is nonobstructed. No pathologic calcifications are seen. IMPRESSION: Moderate stool. No other significant abnormality is detected. Dictated by: Dictated on workstation # [id number]
--- NOTE | 2019-04-01 11:04 | Diagnostic Imaging Report ---
INDICATION: Epigastric pain, cough and sternal pain. TIME OF EXAM: 10:54 AM No prior studies are available for comparison. FINDINGS: The heart size is normal. Lungs are clear. Pulmonary vascularity is normal. There is no effusion or pneumothorax. There is a lucency in the region of the mid sternal body on the lateral view suggestive of a sternal fracture with mild displacement. Acuity is indeterminate. IMPRESSION: No acute cardiopulmonary process is detected. There are findings suggestive of a sternal body fracture. CT through the chest would be useful for further evaluation. Dictated by: Dictated on workstation # [id number]
[2019-04-01 11:19] VITALS: BP 112/89
== END 2019-04-01 11:15 | disposition home or self-care (01) ==
LOC: EDUNIT# 10:11 → ER 10:12
DX: S22.22XA Fracture of body of sternum, initial encounter for closed fracture (principal); G43.909 Migraine, unspecified, not intractable, without status migrainosus; F41.9 Anxiety disorder, unspecified; F32.9 Major depressive disorder, single episode, unspecified; Z88.2 Allergy status to sulfonamides; Z90.710 Acquired absence of both cervix and uterus; X58.XXXA Exposure to other specified factors, initial encounter
CPT/HCPCS: 36415; 71046; 74018; 80053; 83735; 84484; 85025; 85610; 85730; 93005; 93041

== ENCOUNTER 2019-08-24 12:32 | Emergency (ER) | payer OTHER ==
[~2019-08-24] VITALS: Ht 170.1 cm; Wt 77.6 kg
[~2019-08-24 12:32] MED LIST changes: +ONDA-105; -ONDA4TAB10
[2019-08-24] MEDS ORDERED: NS IV 1000 ML 1,000 ML IV SCH (14:02)
[2019-08-24] MEDS ORDERED: diphenhydrAMINE 50 MG/ML INJ (BENADRYL) IM ONE (14:15)
[2019-08-24] MEDS ORDERED: KETOROLAC 30 MG/ML VIAL IVP ONE (14:15)
[2019-08-24] MEDS ORDERED: PROMETHAZINE INJ 25 MG/ML (PHENERGAN) AMP IVP ONE (14:15)
--- NOTE | 2019-08-24 14:19 | ED Headache ---
General Chief Complaint: Head/Cervical Problems Stated Complaint: HEADACHE Nursing Triage Note: Headache x couple of days. Worse today. Pain 10/10 Nursing Sepsis Screen: No Definite Risk Source: patient Exam Limitations: no limitations (DEANNA BEE MED STUDENT) History of Present Illness Date Seen by Provider: Aug 24, 2019 Time Seen by Provider: 13:27 Initial Comments Ms. Sparks is a 39 year old female that presents to the emergency department with complaints of a headache. The headaches are daily and have occurred for several years. This headache began to worsen about 5 days ago, she states this morning it was a 10/10 pain. She describes the pain as a pressure over the posterior frontal lobe. 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 The headaches were present prior to the surgery and have remained unchanged in duration, frequency, and character. She admits to blurred vision, dizziness, nausea, light and sound sensitivity but denies neck pain/stiffness and confusion. She states the character of this headache is common for her, she will typically be seen in the ED when the pain gets to a 10/10. Last head CT was done 07/2018 and was stable. Her neurologist is Dr. Medrano in [place]. Location: frontal, parietal Prior Headaches/Recent Trauma: chronic headaches Modifying Factors: worse with exposure to light; improves with rest Associated Symptoms: No confusion; fatigue; No fever/chills, No loss of co nsciousness; nausea/vomiting; No numbness in legs/feet, No stiff neck; vision changes (DEANNA BEE MED STUDENT) Allergies and Home Medications Allergies Coded Allergies: Sulfa (Sulfonamide Antibiotics) (Verified Allergy, Unknown, 09/08/15) Home Medications Alprazolam 0.5 Mg Tablet, 0.5 MG PO for ANXIETY, (Reported) Sertraline HCl 100 Mg Tablet, 100 MG PO DAILY, (Reported) Patient Home Medication List Home Medication List Reviewed: Yes (DEANNA BEE MED STUDENT) Review of Systems Review of Systems Constitutional: No chills; dizziness; No fever Eyes: Blurred Vision Ears, Nose, Mouth, Throat: no symptoms reported Respiratory: no symptoms reported Cardiovascular: no symptoms reported Gastrointestinal: No abdominal pain, No constipation, No diarrhea; nausea; No vomiting Genitourinary: no symptoms reported Musculoskeletal: No back pain, No neck pain Skin: no symptoms reported Psychiatric/Neurological: Anxiety, Depressed, Headache; Denies Numbness, Denies Paresthesia (DEANNA BEE MED STUDENT) Past Bwqotds-Wjgige-Rstgnk Hx Patient Social History Alcohol Use: Past History (recovering alcoholic ) Recreational Drug Use: Yes Drug of Choice: MARIJUANA Smoking Status: Current Everyday Smoker Type Used: Cigarettes (1 PPD) Recent Foreign Travel: No Contact w/Someone Who Travel: No Recent Infectious Disease Expo: No Recent Hopitalizations: No (DEANNA BEE MED STUDENT) Past Medical History Surgeries: Yes (colloid cyst removal from 3rd ventricle) Section, Gallbladder, Hysterectomy Respiratory: No Cardiac: No Neurological: Yes (HX OF COLLOID CYST ) Headaches /Migraines Reproductive Disorders: No Genitourinary: No Gastrointestinal: No Musculoskeletal: No Endocrine: No HEENT: No Cancer: No Psychosocial: Yes Anxiety, Depression Integumentary: No Blood Disorders: No (DEANNA BEE MED STUDENT) Family Medical History No Pertinent Family Hx (DEANNA BEE MED STUDENT) Physical Exam Vital Signs Vital Signs - First Documented 08/24/19 13:08 Temp 36.8 Pulse 92 Resp 20 B/P (MAP) 119/82 (94) Pulse Ox 96 O2 Delivery Room Air (CARLYN CASTILLO MD) Vital Signs Capillary Refill : Less Than 3 Seconds (DEANNA BEE MED STUDENT) Height, Weight, BMI Height: 5'7.00" Weight: 180lbs. oz. 81.614766wd; 26.00 BMI Method:Stated General Appearance: WD/WN, mild distress HEENT: PERRL/EOMI Neck: non-tender, full range of motion, supple Cardiovascular: regular rate, rhythm, no murmur Respiratory: chest non-tender, lungs clear, normal breath sounds, no respiratory distress, no accessory muscle use Back: no vertebral tenderness Psychiatric: alert, oriented x 3 Crainal Nerves: normal hearing, normal speech, PERRL Motor/Sensory: no motor deficit, no sensory deficit Skin: normal color, warm/dry (DEANNA BEE MED STUDENT) Progress/Results/Core Measures Results/Orders My Orders Orders - CARLYN CASTILLO MD Ed Iv/Invasive Line Start (08/24/19 14:02) Ns Iv 1000 Ml (Sodium Chloride 0.9%) (08/24/19 14:02) Ketorolac Injection (Toradol Injection) (08/24/19 14:15) Promethazine Injection (Phenergan Injec (08/24/19 14:15) Diphenhydramine Injection (Benadryl Inje (08/24/19 14:15) Diphenhydramine Injection (Benadryl Inje (08/24/19 14:45) Fentanyl Injection (Sublimaze Injection (08/24/19 15:45) Methylprednisolone Sod Succ (Solu-Medrol (08/24/19 15:45) (CARLYN CASTILLO MD) Medications Given in ED (CARLYN CASTILLO MD) Vital Signs/I&O 08/24/19 08/24/19 13:08 16:20 Temp 36.8 36.8 Pulse 92 85 Resp 20 20 B/P (MAP) 119/82 (94) 115/85 (94) Pulse Ox 96 100 O2 Delivery Room Air Room Air (CARLYN CASTILLO MD) Blood Pressure Mean: 94 Progress Progress Note : Time: 15:34 Progress Note Patient states pain is a 9/10 after receiving Benadryl, Toradol, promethazine, and IV fluids. Patient's headache resolving and much improved after she receiving fentanyl and methylprednisolone. Patient instructed to increase fluid intake and rest in dark quiet room. Pain management discussed. Follow up with neurologist (DEANNA BEE,MED STUDENT) Departure Impression Primary Impression: Recurrent headache Disposition: 01 HOME, SELF-CARE Condition: Improved Departure-Patient Inst. Decision time for Depature: 16:11 (CARLYN CASTILLO MD) Referrals: EUGENE LEBRON DO (PCP/Family) Primary Care Physician Patient Instructions: Headache, Adult Add. Discharge Instructions: Drink plenty of clear liquids. Rest in a quiet, calm, dark environment for the remainder of the day. You may take ibuprofen up to 600 mg every 6 hours and/or Tylenol (acetaminophen) up to 1000 mg every 6 hours as needed for pain. You may continue using Phenergan as previously prescribed. Follow-up with your primary care provider and/or headache specialist within the next 1-2 weeks. Return to care if you have worsening symptoms. All discharge instructions reviewed with patient and/or family. Voiced under standing. I have personally seen, examined, and interviewed this patient along with CONOR Mancilla. I agree with her history, physical, assessment, and documentation. Patient's headache successful improved after above-described therapies. Exam: Gen.: Alert, oriented, no acute distress HEENT: Normocephalic and atraumatic, mucous membranes moist, pupils equally round and reactive Heart: Regular rate and rhythm without murmur Lungs: Clear to auscultation bilaterally with normal effort Neuropsych: Alert, oriented, no gross focal deficits, mood and affect normal (CARLYN CASTILLO MD) DEANNA BEE,MED STUDENT Aug 24, 2019 14:19 CARLYN CASTILLO MD Aug 24, 2019 16:13
[2019-08-24] MEDS ORDERED: diphenhydrAMINE 50 MG/ML INJ (BENADRYL) IVP ONE (14:45)
--- OUTSIDE RECORDS SUMMARY | 2019-08-24 15:04 | XMS REPORT ---
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 Role Phone Migration, Doctor Unavailable Unavailable PROBLEMS Type Condition ICD9-CM Code [id number] Code Onset Dates Condition S tatus SNOMED Code Problem Anxiety F41.9 Active 19643005 Problem Chronic tension-type headache, not intractable G44 .229 Active [id number] ALLERGIES No Information ENCOUNTERS Encounter Location Date Diagnosis [place] [address] [phone] Mar, [id number] [place] [address], [place] S [id number] July, Anxiety F41.9 [facility] [address] [place] [id number] [place] [address], [place] S [id number] July, [place] [id number] [place] [address], [place] S [id number] July, Anxiety F41.9 [place] [id number] [place] [address], K S [id number] Jun, Anxiety F41.9 ; High risk medication use Z79.899 ; Chronic tension-type headache, not intractable G44.229 ; Tobacco abuse Z72.0 and Tobacco abuse counseling Z71.6 [place] [id number] [place] [address], K S [id number] May, Anxiety F41.9 ; High risk medication use Z79.899 ; Chronic tension-type headache, not intractable G44.229 and Controlled substance agreement signed Z79.899 [place] [address] [address] [place] [id number] [place] [phone] Feb, Anxiety F41.9 ; Chronic iwona y headache R51 ; General medical exam Z00.00 and Viral illness B34.9 [place] [id number] [place] [id number] [place] [phone] Dec, [facility] [address] [id number] [address] [place] [phone] Dec, [facility] [address] [id number] [address] [place] [phone] Jan, [facility] [address] [id number] [address] [place] [phone] Oct, [facility] [address] [id number] [address] [place] [phone] Oct, [facility] [address] [facility] [id number] [address] [place] [phone] Sep, [facility] [address] [facility] [id number] [address] [place] [phone] Oct, [facility] [address] [facility] [id number] [address] [place] [phone] Aug, IMMUNIZATIONS No Known Immunizations SOCIAL HISTORY Never Assessed REASON FOR VISIT [facility] [place] PLAN OF CARE VITAL SIGNS MEDICATIONS Unknown [...]
--- OUTSIDE RECORDS SUMMARY | 2019-08-24 15:04 | XMS REPORT | Clinical Summary ---
Author Author [facility] Organization [facility] Address Unknown Phone Unavailable Care Team Providers Care Hot Cell Technician Name Role Phone Zain Buitrago MD Unavailable Andrea Hudson DO PCP Peri Evans MD Unavailable Source Comments Some departments are not documenting in the electronic medical record. If you d o not see the information that you expected, contact Release of Information in [facility] [employer] Information Management department at [phone] for further assistan ce in locating additional records.[facility] Allergies Comments Active Allergy Reactions Severity [...] (ZOLOFT) 100 Take 1.5 135 tablet 3 201 mg tablet tablets by 7 mouth at bedtime daily. Active prochlorperazine maleate Take 1 tablet 30 tablet 5 (COMPAZINE) 10 mg tablet by mouth 7 every 6 hours as needed. Active Problems Problem Noted Date Migraine without aura and without status migrainosus, not intractable 01/29/2016 Colloid cyst of third ventricle 09/10/2012 Headache(784.0) [...] Cigarettes 0.5 15 Smokeless Tobacco: Never Used Drinks/Week oz/Week Comments Alcohol Use 0 Standard drinks or equivalent 0.0 quit 2006 No Sex Assigned at Date Recorded Not on file Industry Job Start Date Occupation Not on file Not on file Not on file Travel End Travel History Travel Start No recent travel history available. Last Filed Vital Signs Reading Time Taken Comments Vital Sign 125/89 10/31/2016 3:07 PM CDT Blood Pressure 84 10/31/2016 3:07 PM CDT Pulse 36.7 C (98.1 F) 09/12/2012 12:29 PM CDT Temperature - - Respiratory Rate 96% 09/12/2012 12:29 PM CDT Oxygen Saturation - - Inhaled Oxygen Concentration 86.6 kg (191 lb) 10/31/2016 3:07 PM CDT Weight 170.2 cm (5' 7") 10/31/2016 3:07 PM CDT Height 29.91 10/31/2016 3:07 PM CDT Body Mass Index Plan of Treatment Health Maintenance Due Date Last Done Comments HIV SCREENING 1997 DTAP/TDAP VACCINES (1 - 01/03/2000 Tdap) HEPATITIS C SCREENING 01/03/2000 PHYSICAL (COMPREHENSIVE) 01/03/2000 EXAM CERVICAL CANCER SCREENING 2003 INFLUENZA VACCINE 12/16/2019 12/12/2009 Results Not on filefrom Last 3 Months Insurance Type Payer Benefit Subscriber ID Effective Phone Address Plan / Dates Group AETNA AETNA xxxxxxxxxx 2018-P CHOICE POS resent II [id number] (Home) [place] [id number] Advance Directives Patient Monitoring Specialist Explanation Type Date Recorded Advance 12/03/2012 3:43 PM Directive/DPOA Date Inactivated Comments Code Status Date Activated 09/12/2012 3:46 PM Full Code 09/10/2012 1:35 PM Provider has discussed Code Status No, discussion no t w/Patient or Family? necessary based on Dx
--- OUTSIDE RECORDS SUMMARY | 2019-08-24 15:04 | XMS REPORT ---
Author Author [facility] [employer] [facility] [employer] [facility] [place] Address [address] [address] Care Team Providers Care General Teller Name Role Phone NO, LOCAL PHYSICIAN Unavailable Unavailable EUGENE LEBRON Unavailable YUNAIDA Calderon Unavailable DEGRAFFENREID MAE, MANUEL Unavailable DEGRAFFENREID MAE, MANUEL Unavailable DEGRAFFENREID MAE, MANUEL Unavailable DEGRAFFENREID MAE, MANUEL Unavailable DEGRAFFENREID MAE, MANUEL Unavailable EUGENE LEBRON PCP Migration, Doctor Unavailable Unavailable REMEDIOS PAULA MD Unavailable Unavailable HEATHER JONES APRN Unavailable Unavailable GREYSON ANDRADE Unavailable Unavailable GREYSON ANDRADE Unavailable Unavailable GREYSON ANDRADE Unavailable Unavailable ELHAM HERNANDEZ DO Unavailable Unavailable EUGENE LEBRON PCP Unavailable Unavailable Unavailable Unavailable Unavailable Unavailable Allergies The data below is from unstructured sources Allergen Type Severity Reaction Last Updated Verified Status Sulfa (Sulfonamide Antibiotics) ([id number]) Allergy Unknown September 07 201 6 Yes Active Medications The data below is from unstructured sources Unknown Medications Unknown Medications Unknown Medications No Known Medications No Known Medications No Known Medications Problems Active Problems Problem Normalized Date Last Normalized Normalized Provider Fa cility Classification Problem(s) Recorded Problem Problem Sta tus Duration Residual Acquired Episodic Active HEATHER COLON Via codes; absence of [place] unclassified both cervix Hospital - (6 sources.) and uterus [place] ([address]) Allergic Allergy status Episodic Active HEATHER COLON V ia reactions (8 to [place]ra sources.) sulfonamides Hospital - status [place] ([address]) Nonspecific Chest pain, Episodic Active ELHAM HERNANDEZ , [facility] Via chest pain (3 unspecified DO [place]ra sources.) Hospital - [place] ([address]448) Other Closed Episodic Active EUGENE EATON [place] V ia fractures (1 [place] [address] [facility] source.) [facility] (79277) External cause Exposure to Episodic Active ELHAM HERNANDEZ , V [facility] Via codes: other DO [place] Natural/enviro specified Hospital - nment (3 factors, [place] sources.) initial (04289) encounter Other Fracture of Episodic Active ELHAM HERNANDEZ , [facility] Vi a fractures (3 body of DO [place]ra sources.) stern, Hospital - initial [place] encounter for (42365) closed fracture Mood disorders Major Chronic Active ELHAM HERNANDEZ , [facility] Via (3 sources.) depressive DO [place] disorder, Hospital - single [place] episode, (08593) unspecified Substance-rela Nicotine Chronic Active HEATHER JONES [facility] Vi a yelena disorders dependence, [facility] (6 sources.) cigarettes, Hospital - uncomplicated [place] Translations: (70301) [ CANNABIS ABUSE, UNCOMPLICATED, NICOTINE DEPENDENCE, CIGARETTES, UNCOMPL] Residual Personal Episodic Active HEATHER JONES [facility] Via codes; history of [place] unclassified other Hospital - (2 sources.) complications [place] of , ([address]) childbirth and the puerperium Pleurisy; Pleurisy Episodic Active EUGENE EATON [place] V ia pneumothorax; [address] [facility] pulmonary [facility] collapse (1 (01720) source.) Past or Other Problems Problem Normalized Date Last Normalized Normalized Provider Fa cility Classification Problem(s) Recorded Problem Problem Sta tus Duration Mood disorders Major no information no information HEATHER HALL [facility] Via (5 sources.) depressive [place] disorder, Hospital - single [place] episode, (39606) unspecified Residual Other no information no information HEATHER JONES V [facility] Via codes; specified [place] unclassified postprocedural Hospital - (1 source.) [facility] (95690) Other nervous Personal Episodic Completed HEATHER JONES [facility] Via system history of [place] disorders (1 other diseases Hospital - source.) of the nervous [place] system and (74315) sense organs Procedures Procedure Normalized Procedure Procedure Result Performer Facility Date 07-28-2018 CT of head without no information HEATHER KWON S [place] Via [facility] ([address]) 04-01-2019 Diagnostic radiography no information no name [place] [facility] of chest, combined [facility] (21971) and lateral 04-01-2019 Electrocardiographic no information no name [facility] procedure [facility] (62759) 04-01-2019 Radiography of no information no name [facility] [id number] [facility] (38484) Immunizations Normalized Immunization Date Notes Care Provider Facili ty Immunization vaccine no information EUGENE LEBRON [address] [place] Vi a Translations: [ [facility] vaccine] (00653) Results Test Name Value Interpretation Reference Range Date Time Fa cility (Normalized) (Normalized) (Medline Reference) thyroid on 2017-05-21 Thyrotropin Qn 0.70 m[IU]/L (N) 0.4 - 4 m[IU]/L [facility] (45691) other on 2017-05-21 Albumin/Globulin 1.7 (N) [facility] mass ratio [facility] (95231) Cholesterol in 158 (H) [facility] LDL mass conc [facility] (34529) Cholesterol non 181 (H) [facility] HDL mass conc [facility] (73918) Cholesterol.tota 5.1 (H) [facility] l/Cholesterol in [facility] HDL mass ratio [facility] (60046) Globulin 2.9 (N) [facility] Calculated mass [facility] conc (S) [facility] (89148) MDMA [id number]~02/03 (no code) [facility] 18~Pos~neg~neg~n [facility] eg~neg~neg~neg~n [facility] eg~neg~neg~neg~n (99542) eg~neg~neg metabolic panel on 2017-05-21 Albumin mass 5.0 g/dL (N) 3.4 - 5.4 g/dL [facility] (94446) ALP enzyme 71 U/L (N) 44 - 147 U/L [facility] alth act/vol [facility] (44642) ALT enzyme 13 U/L (N) 4 - 40 U/L [facility] act/vol [facility] (88835) AST enzyme 16 U/L (N) 10 - 34 U/L [facility] act/vol [facility] (94753) Bilirubin mass 0.4 mg/dL (N) 0.1 - 1.2 mg/dL [facility] (27953) Calcium mass 10.6 mg/dL (H) 8.5 - 10.2 mg/dL [facility] (79428) Chloride molar 103 mmol/L (N) 95 - 106 mmol/L [facility] (61569) CO2 molar conc 24 mmol/L (N) 23 - 29 mmol/L [facility] (26714) Creatinine mass 0.90 mg/dL (N) [facility] (02087) GFR/1.73 sq M 96 (N) 90 - 120 [facility] predicted among mL/min/{1.73_m2} mL/min/{1.73_m2} [facility] MDRD [facility] rate/area (20706) (S/P/Bld) GFR/1.73 sq 83 (N) 90 - 120 [facility] M.predicted MDRD mL/min/{1.73_m2} mL/min/{1.73_m2} [facility] rate/[facility] (82014) Glucose mass 97 mg/dL (N) 60 - 125 mg/dL [facility] (82467) Potassium molar 4.1 mmol/L (N) 3.7 - 5.2 mmol/L [facility] (42663) Protein mass 7.9 g/dL (N) 6.4 - 8.3 g/dL [facility] (84031) Sodium molar 138 mmol/L (N) 135 - 145 mmol/L [facility] (41204) Urea nitrogen 11 mg/dL (N) 7 - 20 mg/dL [facility] (09383) Urea NOT APPLICABLE (no code) [facility] nitrogen/Creatin [facility] ine mass ratio [facility] (91921) hematology on 2017-05-21 Basophils Auto 0.063 10*3/uL (N) 0 - 0.3 10*3/uL [facility] #/vol (Bld) [facility] (41763) Basophils/100 0.9 % (N) 0.5 - 1 % [facility] alth WBC Auto (Bld) [facility] (30466) Eosinophils Auto 0.371 10*3/uL (N) 0.05 - 0.5 [facility] #/vol (Bld) 10*3/uL [facility] (90633) Eosinophils/100 5.3 % (N) 1 - 4 % [facility] WBC Auto (Bld) [facility] (41581) Erythrocyte 12.1 % (N) 11.6 - 14.6 % [facility] ealth distribution [facility] Auto Ratio [facility] (RBC) (57192) Hematocrit Auto 43.3 % (N) 36.1 - 50.3 % [facility] Volume Fraction [facility] (Bld) [facility] (53636) Hemoglobin mass 15.0 g/dL (N) 12.1 - 17.2 g/dL [facility] conc (Bld) [facility] (96279) Lymphocytes Auto 1.792 10*3/uL (N) 0.9 - 2.9 [facility] #/vol (Bld) 10*3/uL [facility] (11258) Lymphocytes/100 25.6 % (N) 20 - 40 % [facility] WBC Auto (Bld) [facility] (86469) MCH Auto Entitic 30.5 pg (N) 27 - 31 pg [facility] mass (RBC) [facility] (92266) MCHC Auto mass 34.6 g/dL (N) 32 - 36 g/dL [facility] conc (RBC) [facility] (72054) MCV Auto Entitic 88.2 fL (N) 80 - 100 fL [facility] volume (RBC) [facility] (71859) Monocytes Auto 0.497 10*3/uL (N) 0.3 - 0.9 [facility] #/vol (Bld) 10*3/uL [facility] (79493) Monocytes/100 7.1 % (N) 2 - 8 % [facility] WBC Auto (Bld) [facility] (24664) Neutrophils Auto 4.277 10*3/uL (N) 1.7 - 7 10*3/uL [facility] #/vol (Bld) [facility] (51563) Neutrophils/100 61.1 % (N) 40 - 60 % [facility] WBC Auto (Bld) [facility] (25251) Platelet mean 11.1 fL (N) 7.2 - 11.7 fL [facility] volume Auto [facility] (Bld) (68419) Platelets Auto 246 10*3/uL (N) 150 - 450 [facility] H ealth #/vol (Bld) 10*3/uL [facility] (49625) RBC Auto #/vol 4.91 10*6/uL (N) 4.2 - 6.1 [facility] Health (Bld) 10*6/uL [facility] (13121) WBC Auto #/vol 7.0 10*3/uL (N) 3.5 - 10.5 [facility] H ealth (Bld) 10*3/uL [facility] (91743) cardiac on 2017-05-21 Cholesterol in 44 mg/dL (L) [facility] Healt h HDL mass conc [facility] (59701) Cholesterol mass 225 mg/dL (H) 180 - 200 mg/dL [facility] conc [facility] (56920) Triglyceride 115 mg/dL (N) 0 - 150 mg/dL [facility] mass conc [facility] (70896) Vital Signs The data below is from unstructured sources Vital Response Date/Time Temperature (Fahrenheit) 96.9 degree s F (97.6 - 99.5) 11/08/2015 10:50am Temperature (Calculated Celsius) 36. 35298 degrees C (36.4 - 37.5) 11/08/2015 10:50am Temperature Source Temporal 11/08/2015 10:50am Pulse Rate (adult) 78 bpm (60 - 90) 11/08/2015 10:50am Respiratory Rate 16 bpm (12 - 24) 11/08/2015 10:50am O2 Sat by Pulse Oximetry 98 % (88 - 100) 11/08/2015 10:50am Blood Pressure 132/96 mm Hg 11/08/2015 10:50am Blood Pressure Mean 108 mm Hg 11/08/2015 10:50am Pain Numeric Pain Scale 10-Worst Possible Pain 11/08/2015 11:24am Height (Feet) 5 feet 10:50am Height (Inches) 7 inches 11/08/2015 10:50am Height (Calculated Centimeters) 170. 595762 cm 11/08/2015 10:50am Weight (Pounds) 180 pounds 11/08/2015 10:50am Weight (Calculated Grams) 06248.627 gm 11/08/2015 10:50am Weight (Calculated Kilograms) 81.646 627 kilograms 11/08/2015 10:50am Capillary Refill Capillary Refill Less Than 3 Seconds 11/08/2015 10:50am Height 5 ft 7 in Weight 180 lb Body Mass Index 28.2 kg/m^2 Vital Response Date/Time Temperature (Fahrenheit) 96.8 degree s F (97.6 - 99.5) 09/22/2015 11:31am Temperature (Calculated Celsius) 36. 43707 degrees C (36.4 - 37.5) 09/22/2015 11:31am Temperature Source Temporal 09/22/2015 11:31am Pulse Rate (adult) 76 bpm (60 - 90) 09/22/2015 11:31am Respiratory Rate 14 bpm (12 - 24) 09/22/2015 11:31am O2 Sat by Pulse Oximetry 96 % (88 - 100) 09/22/2015 11:31am Blood Pressure 115/77 mm Hg 09/22/2015 11:31am Blood Pressure Mean 90 mm Hg 09/22/2015 11:31am Pain Numeric Pain Scale 8 2:39pm Pain Intensity 3 2015 3:40pm Height (Feet) 5 feet 10/2015 11:31am Height (Inches) 7 inches 09/22/2015 11:31am Height (Calculated Centimeters) 170. 487973 cm 09/22/2015 11:31am Weight (Pounds) 175 pounds 09/22/2015 11:31am Weight (Calculated Grams) 09695.666 gm 09/22/2015 11:31am Weight (Calculated Kilograms) 79.378 666 kilograms 09/22/2015 11:31am Height 5 ft 7 in Weight 175 lb Body Mass Index 27.4 kg/m^2 Vital Response Date/Time Temperature (Fahrenheit) 97.2 degree s F (97.6 - 99.5) 09/08/2015 12:57pm Temperature (Calculated Celsius) 36. 54063 degrees C (36.4 - 37.5) 09/08/2015 12:57pm Temperature Source Temporal 09/08/2015 12:57pm Pulse Rate (adult) 69 bpm (60 - 90) 09/08/2015 12:57pm Respiratory Rate 18 bpm (12 - 24) 09/08/2015 12:57pm O2 Sat by Pulse Oximetry 95 % (88 - 100) 09/08/2015 12:57pm Blood Pressure 143/91 mm Hg 09/08/2015 12:57pm Blood Pressure Mean 108 mm Hg 09/08/2015 12:57pm Pain Pain Intensity 5 2015 3:04pm Height (Feet) 5 feet 12:57pm Height (Inches) 7 inches 09/08/2015 12:57pm Height (Calculated Centimeters) 170. 257757 cm 09/08/2015 12:57pm Weight (Pounds) 175 pounds 09/08/2015 12:57pm Weight (Calculated Kilograms) 79.378 666 kilograms 09/08/2015 12:57pm Height 5 ft 7 in Weight 175 lb Body Mass Index 27.4 kg/m^2 Vital Response Date/Time Temperature (Fahrenheit) 97.7 degree s F (97.6 - 99.5) 07/28/2018 11:47am Temperature (Calculated Celsius) 36. 82727 degrees C (36.4 - 37.5) 07/28/2018 11:47am Temperature Source Oral 07/28/2018 11:47am Pulse Rate (adult) 87 bpm (60 - 90) 07/28/2018 11:47am Respiratory Rate 20 bpm (12 - 24) 07/28/2018 11:47am O2 Sat by Pulse Oximetry 96 % (88 - 100) 07/28/2018 11:47am Blood Pressure 138/94 mm Hg 07/28/2018 11:47am Blood Pressure Mean 109 mm Hg (65 - 110) 07/28/2018 11:47am Pain Numeric Pain Scale 9 11:47am Height (Feet) 5 feet 11:47am Height (Inches) 7.00 inches 07/28/2018 11:47am Height (Calculated Centimeters) 170. 216746 cm 07/28/2018 11:47am Height Method Stated 11:47am Weight (Pounds) 180 pounds 07/28/2018 11:47am Weight (Calculated Grams) 84762.63 gm 07/28/2018 11:47am Weight (Calculated Kilograms) 81.646 627 kilograms 07/28/2018 11:47am Weight Method Stated 11:47am Capillary Refill Capillary Refill Less Than 3 Seconds 07/28/2018 11:47am Height 5 ft 7 in 019 11:47am Weight 180 lb 07/28/2018 11:47am Body Mass Index 28.2 kg/m^2 07/28/2018 11:47am Vital Reading Result Col lection Date/Time Vital Reading Result Col lection Date/Time Interventions No Information Plan of Treatment Normalized Care Care Detail Care Activity Date Care Provider F acility Activity Patient Education no information no information EUGENE LEBRON [address] [place] [address] [facility] ([id number]) Patient referral no information no information EUGENE LEBRON [phone] [place] [address] [facility] (94353) Goals Patient Goal Desired Goal no information no information Social History Normalized Code Original Code Date Value no information no information 09-30-2015 Past History no information no information 09-30-2015 No no information no information 04-01-2019 Denies no information no information 04-01-2019 Cigarettes no information no information 04-01-2019 MARIJUANA Sex Assigned At Sex Assigned At no information F emale Functional Status The data below is from unstructured sources Query Response Date Dwain rded Patient Orientation Person Place Time Situation November 08, 2015 10:50am Comprehension Ability Understands Co ncepts November 08, 2015 10:50am Query Response Date Dwain rded Patient Orientation Person Place Time Situation September 22, 2015 11:31am Comprehension Ability Understands Co ncepts September 22, 2015 11:31am Query Response Date Dwain rded Patient Orientation Person Place Time September 08, 2015 1:04pm Comprehension Ability Understands Co ncepts September 08, 2015 1:04pm Query Response Date Dwain rded Comprehension Ability Understands Co ncepts July 28, 2018 11:47am No Functional Status information available Mental Status The data below is from unstructured sourcesNo Mental Status Information Available Encounters Encounter Normalized Encounter Encounter Diagnosis Care Provi augustine Organization Date Type 04-01-2019 Emergency department no information (no phone) [facility] patient [facility] (no phone) 04-01-2019 04-01-2019 Emergency department no information no name no organization name - patient visit 04-01-2019 07-28-2018 Emergency department no information HEATHER Pratt APRN BA TANG no organization name - patient visit Work Phone: 07-28-2018 06-09-2017 Emergency department no information no name no organization name - patient visit 06-09-2017 06-18-2017 Patient encounter no information no name no or ganization name 06-09-2017 Patient encounter no information no name no or ganization name 05-21-2017 Patient encounter no information no name no or ganization name 04-01-2019 Patient encounter no information no name no or ganization name procedure 05-30-2016 Patient encounter no information no name no or ganization name - procedure 05-31-2016 03-18-2018 Telephone encounter no information MANUEL HALL [facility] (no phone) (no phone) Medical Equipment The data below is from unstructured sourcesNo Medical Equipment Information available Payers Normalized Payer Value Private Health Insurance no information Evaluation note Note Type Note Facility Evaluation No Assessments Information Available A scension note [facility] ([id number]) Advance Directives Directive Response Recor ded Date/Time Advance Directives No 10:50am Resuscitation Status Full Code 11/08/15 10:50am Directive Response Recor ded Date/Time Advance Directives No 11:31am Resuscitation Status Full Code 09/22/15 11:31am Directive Response Recor ded Date/Time Advance Directives No 12:57pm Resuscitation Status Full Code 09/08/15 12:57pm Directive Response Recor ded Date/Time Advance Directives No 11:47am Resuscitation Status Full Code 07/28/18 11:47am Advance Directive Response Recorded Date/Time Advance Directives No Vamsi chandra 2019 10:10am Resuscitation Status Full Code April 01, 2019 10:10am Discharge Instructions No hospital discharge instructions.No hospital discharge instructions.No hospital discharge instructions.No hospital discharge instruction information available. Chief Complaint and Reason for Visit Chief Complaint Head/Cervical Proble ms Reason for Visit Headache Chief Complaint Chest Pain Reason for Visit [id number] Additional Source Comments This clinical document has been generated using [employer] software that has been certified by the Office of the National Coordinator for Health Information Technology (ONC 15.99.04.3023.Diam.31.00.0.361504) and the National Committee for Outreach Specialist (NCQA, as an eMeasure certified technology). FOR RECORDS PERTAINING TO PATIENTS WHO ARE OR HAVE BEEN ENROLLED IN A CHEMICAL D EPENDENCY/SUBSTANCE ABUSE PROGRAM, SOME INFORMATION MAY BE OMITTED. This clinica l summary was aggregated from multiple sources. Caution should be exercised in using it in the provision of clinical care. This summary normalizes information from multiple sources, and as a consequence, information in this document may ma terially change the coding, format and clinical context of patient data. In mary ann tion, data may be omitted in some cases. CLINICAL DECISIONS SHOULD BE BASED ON T HE PRIMARY CLINICAL RECORDS. [employer] provides no warranty or guara ntee of the accuracy or completeness of information in this document.The followi ng information is based on time limited clinical information UNRECOGNIZED CONTENT PROVIDED BELOW FOR UNRECOGNIZED SECTION MEDICAL (GENERAL) HISTORY Type Description Date Medical History Anxeity Medical History Depression Surgical History Brain tumor in left ventricle 2013 Surgical History Hysterectomy 2013 Surgical History Gallbladder removal 2011 Surgical History Cesearean section 1999 Hospitalization History Child 1999 Hospitalization History ER visit for migraine 06/2017 UNRECOGNIZED CONTENT PROVIDED BELOW FOR UNRECOGNIZED SECTION REASON FOR VISIT [facility]
--- OUTSIDE RECORDS SUMMARY | 2019-08-24 15:05 | XMS REPORT | Continuity of Care Document ---
Author Organization Unknown Address Unknown Phone Unavailable Allergies Active Description Code Type Severity Reaction Onset Reported/Identified Relationship to Patient Clinical Status Yes Sulfa (Sulfonamide Antibiotics) [id number] Drug Allergy Unknown N/A 016 Medications There is no data. Problems Date Dx Coded Attending Type Code Diagnosis Diagnosed By 09/08/2015 Ot 611.72 LUM P OR MASS IN BREAST 09/08/2015 LENA RODRIGES MD Ot F17.210 NICOTINE DEPENDENCE, CIGARETTES, UNCOMPL 09/08/2015 LENA RODRIGES MD Ot J32. 9 CHRONIC SINUSITIS, UNSPECIFIED 09/08/2015 LENA RODRIGES MD Ot R51 HEADACHE 09/11/2015 LENA RODRIGES MD Ot F17.210 NICOTINE DEPENDENCE, CIGARETTES, UNCOMPL 09/11/2015 LENA RODRIGES MD Ot J32. 9 CHRONIC SINUSITIS, UNSPECIFIED 09/11/2015 LENA RODRIGES MD Ot R51 HEADACHE 09/22/2015 AZALEA CLEMENT Ot F17.210 NICOTINE DEPENDENCE, CIGARETTES, UNCOMPL 09/22/2015 AZALEA CLEMENT Ot R 51 HEADACHE 09/25/2015 AZALEA CLEMENT Ot F17.210 NICOTINE DEPENDENCE, CIGARETTES, UNCOMPL 09/25/2015 AZALEA CLEMENT Ot R 51 HEADACHE 09/30/2015 LENA RODRIGES MD Ot F17.210 NICOTINE DEPENDENCE, CIGARETTES, UNCOMPL 09/30/2015 LENA RODRIGES MD Ot G43.909 MIGRAINE, UNSP, NOT INTRACTABLE, WITHOUT 10/03/2015 LENA RODRIGES MD Ot F17.210 NICOTINE DEPENDENCE, CIGARETTES, UNCOMPL 10/03/2015 LENA RODRIGES MD Ot G43.909 MIGRAINE, UNSP, NOT INTRACTABLE, WITHOUT 11/08/2015 HEATHER JONES APRN Ot F17.210 NICOTINE DEPENDENCE, CIGARETTES, UNCOMPL 11/08/2015 HEATHER JONES APRN Ot F32 .9 MAJOR DEPRESSIVE DISORDER, SINGLE EPISOD 11/08/2015 HEATHER JONES PHERESIS NURSE Ot F41 .9 ANXIETY DISORDER, UNSPECIFIED 11/08/2015 HEATHER JONES APRN Ot R51 HEADACHE 11/10/2015 HEATHER JONES APRN Ot F17.210 NICOTINE DEPENDENCE, CIGARETTES, UNCOMPL 11/10/2015 HEATHER JONES APRN Ot F32 .9 MAJOR DEPRESSIVE DISORDER, SINGLE EPISOD 11/10/2015 HEATHER JONES PHERESIS NURSE Ot F41 .9 ANXIETY DISORDER, UNSPECIFIED 11/10/2015 HEATHER JONES APRN Ot R51 HEADACHE 12/04/2015 ALYX BECK, FLORIN Z Ot Q04 .6 CONGENITAL CEREBRAL CYSTS 12/04/2015 ALYX BECK, FLORIN Z Ot Q04 .6 CONGENITAL CEREBRAL CYSTS 12/07/2015 ALYX BECK, FLORIN Z Ot Q04 .6 CONGENITAL CEREBRAL CYSTS 12/21/2015 ALYX BECK, FLORIN Z Ot Q04 .6 CONGENITAL CEREBRAL CYSTS 06/09/2017 HEATHER JONES APRN Ot F17.210 NICOTINE DEPENDENCE, CIGARETTES, UNCOMPL 06/09/2017 HEATHER JONES APRN Ot F32 .9 MAJOR DEPRESSIVE DISORDER, SINGLE EPISOD 06/09/2017 HEATHER JONES APRN Ot F41 .9 ANXIETY DISORDER, UNSPECIFIED 06/09/2017 HEATHER JONES APRN Ot R51 HEADACHE 06/09/2017 HEATHER JONES APRN Ot Z87.59 PERSONAL HISTORY OF COMP OF PREG, CHLDBR 06/09/2017 HEATHER JONES APRN Ot Z88 .2 ALLERGY STATUS TO SULFONAMIDES STATUS 06/09/2017 HEATHER JONES APRN Ot Z90.710 ACQUIRED ABSENCE OF BOTH CERVIX AND UTER 06/11/2017 HEATHER JONES APRN Ot F17.210 NICOTINE DEPENDENCE, CIGARETTES, UNCOMPL 06/11/2017 HEATHER JONES APRN Ot F32 .9 MAJOR DEPRESSIVE DISORDER, SINGLE EPISOD 06/11/2017 HEATHER JONES APRN Ot F41 .9 ANXIETY DISORDER, UNSPECIFIED 06/11/2017 HEATHER JONES APRN Ot R51 HEADACHE 06/11/2017 HEATHER JONES APRN Ot Z87.59 PERSONAL HISTORY OF COMP OF PREG, CHLDBR 06/11/2017 HEATHER JONES APRN Ot Z88 .2 ALLERGY STATUS TO SULFONAMIDES STATUS 06/11/2017 HEATHER JONES APRN Ot Z90.710 ACQUIRED ABSENCE OF BOTH CERVIX AND UTER 07/28/2018 HEATHER JONES APRN Ot F12.10 CANNABIS ABUSE, UNCOMPLICATED 07/28/2018 HEATHER JONES APRN Ot F17.210 NICOTINE DEPENDENCE, CIGARETTES, UNCOMPL 07/28/2018 HEATHER JONES APRN Ot F32 .9 MAJOR DEPRESSIVE DISORDER, SINGLE EPISOD 07/28/2018 HEATHER JONES APRN Ot F41 .9 ANXIETY DISORDER, UNSPECIFIED 07/28/2018 HEATHER JONES APRN Ot R51 HEADACHE 07/28/2018 HEATHER JONES APRN Ot Z86.69 PERSONAL HISTORY OF DIS OF THE NERVOUS S 07/28/2018 HEATHER JONES APRN Ot Z88 .2 ALLERGY STATUS TO SULFONAMIDES STATUS 07/28/2018 HEATHER JONES APRN Ot Z90.710 ACQUIRED ABSENCE OF BOTH CERVIX AND UTER 07/28/2018 HEATHER JONES APRN Ot Z98.890 OTHER SPECIFIED POSTPROCEDURAL STATES 07/30/2018 HEATHER JONES APRN Ot F12.10 CANNABIS ABUSE, UNCOMPLICATED 07/30/2018 HEATHER JONES APRN Ot F17.210 NICOTINE DEPENDENCE, CIGARETTES, UNCOMPL 07/30/2018 HEATHER JONES APRN Ot F32 .9 MAJOR DEPRESSIVE DISORDER, SINGLE EPISOD 07/30/2018 HEATHER JONES APRN Ot F41 .9 ANXIETY DISORDER, UNSPECIFIED 07/30/2018 HEATHER JONES APRN Ot R51 HEADACHE 07/30/2018 HEATHER JONES APRN Ot Z86.69 PERSONAL HISTORY OF DIS OF THE NERVOUS S 07/30/2018 HEATHER JONES APRN Ot Z88 .2 ALLERGY STATUS TO SULFONAMIDES STATUS 07/30/2018 HEATHER JONES APRN Ot Z90.710 ACQUIRED ABSENCE OF BOTH CERVIX AND UTER 07/30/2018 HEATHER JONES APRN Ot Z98.890 OTHER SPECIFIED POSTPROCEDURAL STATES 04/01/2019 HERNANDEZ DO, ELHAM L Ot F32.9 MAJOR DEPRESSIVE DISORDER, SINGLE EPISOD 04/01/2019 HERNANDEZ DO, ELHAM L Ot F41.9 ANXIETY DISORDER, UNSPECIFIED 04/01/2019 HERNANDEZ DO, ELHAM L Ot G43.9 09 MIGRAINE, UNSP, NOT INTRACTABLE, WITHOUT 04/01/2019 HERNANDEZ DO, ELHAM L Ot R07.9 CHEST PAIN, UNSPECIFIED 04/01/2019 HERNANDEZ DO, ELHAM L Ot S22.22XA FRACTURE OF BODY OF STERNUM, INIT ENCNTR 04/01/2019 HERNANDEZ DO, ELHAM L Ot X58.XXXA EXPOSURE TO OTHER SPECIFIED FACTORS, INI 04/01/2019 HERNANDEZ DO, ELHAM L Ot Z88.2 ALLERGY STATUS TO SULFONAMIDES STATUS 04/01/2019 HERNANDEZ DO, ELHAM L Ot Z90.7 10 ACQUIRED ABSENCE OF BOTH CERVIX AND UTER 04/05/2019 HERNANDEZ DO, ELHAM L Ot F32.9 MAJOR DEPRESSIVE DISORDER, SINGLE EPISOD 04/05/2019 HERNANDEZ DO, ELHAM L Ot F41.9 ANXIETY DISORDER, UNSPECIFIED 04/05/2019 HERNANDEZ DO, ELHAM L Ot G43.9 09 MIGRAINE, UNSP, NOT INTRACTABLE, WITHOUT 04/05/2019 HERNANDEZ DO, ELHAM L Ot R07.9 CHEST PAIN, UNSPECIFIED 04/05/2019 HERNANDEZ DO, ELHAM L Ot S22.22XA FRACTURE OF BODY OF STERNUM, INIT ENCNTR 04/05/2019 HERNANDEZ DO, ELHAM L Ot X58.XXXA EXPOSURE TO OTHER SPECIFIED FACTORS, INI 04/05/2019 HERNANDEZ DO, ELHAM L Ot Z88.2 ALLERGY STATUS TO SULFONAMIDES STATUS 04/05/2019 HERNANDEZ DO, ELHAM L Ot Z90.7 10 ACQUIRED ABSENCE OF BOTH CERVIX AND UTER 04/07/2019 HERNANDEZ DO, ELHAM L Ot F32.9 MAJOR DEPRESSIVE DISORDER, SINGLE EPISOD 04/07/2019 HERNANDEZ DO, ELHAM L Ot F41.9 ANXIETY DISORDER, UNSPECIFIED 04/07/2019 HERNANDEZ DO, ELHAM L Ot G43.9 09 MIGRAINE, UNSP, NOT INTRACTABLE, WITHOUT 04/07/2019 HERNANDEZ DO, ELHAM L Ot R07.9 CHEST PAIN, UNSPECIFIED 04/07/2019 HERNANDEZ DO, ELHAM L Ot S22.22XA FRACTURE OF BODY OF STERNUM, INIT ENCNTR 04/07/2019 HERNANDEZ DO, ELHAM L Ot X58.XXXA EXPOSURE TO OTHER SPECIFIED FACTORS, INI 04/07/2019 HERNANDEZ DO, ELHAM L Ot Z88.2 ALLERGY STATUS TO SULFONAMIDES STATUS 04/07/2019 HERANNDEZ ELHAM RIVERA Ot Z90.7 10 ACQUIRED ABSENCE OF BOTH CERVIX AND UTER Procedures There is no data. Results Test Result Range LIPID PANEL - 05/21/17 13:19 CHOLESTEROL, TOTAL 225 mg/dL <200 HDL CHOLESTEROL 44 mg/dL >50 TRIGLYCERIDES 115 mg/dL <150 LDL-CHOLESTEROL 158 mg/dL (calc) NRG CHOL/HDLC RATIO 5.1 (calc) <5.0 NON HDL CHOLESTEROL 181 mg/dL (calc) <13 0 CMP - 05/21/17 13:19 GLUCOSE 97 mg/dL 65-99 UREA NITROGEN (BUN) 11 mg/dL 7-25 CREATININE 0.90 mg/dL 0.50-1.10 eGFR NON-AFR. SAMMARINESE 83 mL/min/1.73m2 > OR = 60 eGFR 96 mL/min/1.73m2 > OR = 60 BUN/CREATININE RATIO NOT APPLICABLE (calc) 6-22 SODIUM 138 mmol/L 135-146 POTASSIUM 4.1 mmol/L 3.5-5.3 CHLORIDE 103 mmol/L 98-110 CARBON DIOXIDE 24 mmol/L 20-31 CALCIUM 10.6 mg/dL 8.6-10.2 PROTEIN, TOTAL 7.9 g/dL 6.1-8.1 ALBUMIN 5.0 g/dL 3.6-5.1 GLOBULIN 2.9 g/dL (calc) 1.9-3.7 ALBUMIN/GLOBULIN RATIO 1.7 (calc) 1.0-2. 5 BILIRUBIN, TOTAL 0.4 mg/dL 0.2-1.2 ALKALINE PHOSPHATASE 71 U/L 33-115 AST 16 U/L 10-30 ALT 13 U/L 6-29 CBC - 05/21/17 13:19 WHITE BLOOD CELL COUNT 7.0 Thousand/uL 3 .8-10.8 RED BLOOD CELL COUNT 4.91 Million/uL 3.8 0-5.10 HEMOGLOBIN 15.0 g/dL 11.7-15.5 HEMATOCRIT 43.3 % 35.0-45.0 MCV 88.2 fL 80.0-100.0 MCH 30.5 pg 27.0-33.0 MCHC 34.6 g/dL 32.0-36.0 RDW 12.1 % 11.0-15.0 PLATELET COUNT 246 Thousand/uL 140-400 MPV 11.1 fL 7.5-12.5 ABSOLUTE NEUTROPHILS 4277 cells/uL 1500- 7800 ABSOLUTE LYMPHOCYTES 1792 cells/uL 850-3 900 ABSOLUTE MONOCYTES 497 cells/uL 200-950 ABSOLUTE EOSINOPHILS 371 cells/uL 15-500 ABSOLUTE BASOPHILS 63 cells/uL 0-200 NEUTROPHILS 61.1 % NRG LYMPHOCYTES 25.6 % NRG MONOCYTES 7.1 % NRG EOSINOPHILS 5.3 % NRG BASOPHILS 0.9 % NRG THYROID ANALYZER - 05/21/17 13:19 TSH 0.70 mIU/L NRG Complete blood count (CBC) with automate d white blood cell (WBC) differential - 04/01/19 10:20 Blood leukocytes automated count (number/volume) 6.0 10*3/uL 4.3-11.0 Blood erythrocytes automated count (number/volume) 4.48 10*6/uL 4.35-5.85 Venous blood hemoglobin measurement (mass/volume) 13.8 g/dL 11.5-16.0 Blood hematocrit (volume fraction) 41 % 35-52 Automated erythrocyte mean corpuscular volume 92 [ foz_us] 80-99 Automated erythrocyte mean corpuscular h emoglobin (mass per erythrocyte) 31 pg 25-34 Automated erythrocyte mean corpuscular h emoglobin concentration measurement (mass/volume) 34 g/dL 32-36 Automated erythrocyte distribution width ratio 12. 3 % 10.0- 14.5 Automated blood platelet count (count/volume) 261 10*3/uL 130-400 Automated blood platelet mean volume measurement 10.1 [foz_us] 7.4-10.4 Automated blood neutrophils/100 leukocytes 43 % 42-75 Automated blood lymphocytes/100 leukocytes 39 % 12-44 Blood monocytes/100 leukocytes 5 % 0-12 Automated blood eosinophils/100 leukocytes 13 % 0-10 Automated blood basophils/100 leukocytes 1 % 0-10 Blood neutrophils automated count (number/volume) 2.6 10*3 1.8-7.8 Blood lymphocytes automated count (number/volume) 2.4 10*3 1.0-4.0 Blood monocytes automated count (number/volume) 0. 3 10*3 0.0-1.0 Automated eosinophil count 0.8 10*3/uL 0 .0-0.3 Automated blood basophil count (count/volume) 0.0 10*3/uL 0.0-0.1 Comprehensive metabolic panel - 04/01/19 10:20 Serum or plasma sodium measurement (moles/volume) 140 mmol/L 135-145 Serum or plasma potassium measurement (moles/volume) 3.8 mmol/L 3.6-5.0 Serum or plasma chloride measurement (moles/volume) 104 mmol/L 98-107 Carbon dioxide 27 mmol/L 21-32 Serum or plasma anion gap determination (moles/volume) 9 mmol/L 5-14 Serum or plasma urea nitrogen measurement (mass/volume ) 11 mg/dL 7-18 Serum or plasma creatinine measurement (mass/volume) 0.86 mg/dL 0.60-1.30 Serum or plasma urea nitrogen/creatinine mass ratio 13 NRG Serum or plasma creatinine measurement w ith calculation of estimated glomerular filtration rate > NRG Serum or plasma glucose measurement (mass/volume) 69 mg/dL 70-105 Serum or plasma calcium measurement (mass/volume) 9.7 mg/dL 8.5-10.1 Serum or plasma total bilirubin measurement (mass/volu me) 0.3 mg/dL 0.1-1.0 Serum or plasma alkaline phosphatase bre surement (enzymatic activity/volume) 70 U/L 40-136 Serum or plasma aspartate aminotransfera se measurement (enzymatic activity/volume) 18 U/L 5-34 Serum or plasma alanine aminotransferase measurement (enzymatic activity/volume) 14 U/L 0-55 Serum or plasma protein measurement (mass/volume) 7.8 g/dL 6.4-8.2 Serum or plasma albumin measurement (mass/volume) 4.8 g/dL 3.2-4.5 Magnesium - 04/01/19 10:20 Magnesium 1.7 mg/dL 1.6-2.4 PT panel in platelet poor plasma by coag ulation assay - 04/01/19 10:20 Prothrombin time (PT) in platelet poor plasma by coagu lation assay 13.4 s 12.2-14.7 INR in platelet poor plasma or blood by coagulation as say 1.0 0.8-1.4 Activated partial thromboplastin time (a PTT) in platelet poor plasma bycoagulation assay - 04/01/19 10:20 Activated partial thromboplastin time (a PTT) in platelet poor plasma bycoagulation assay 31 s 24-35 Serum or plasma troponin i.cardiac measu rement (mass/volume) - 04/01/19 10:20 Serum or plasma troponin i.cardiac measurement (mass/v olume) < ng/mL <0.028 Encounters ACCT No. Visit Date/Time Discharge Status Pt. Type Provider Facility Loc./Unit Complaint [id number] 06/18/2017 15:00:00 06/18/2017 23:59:5 9 [facility] Outpatient PHILLIP MCKAY APRN PABLO Sh[facility] [id number] 05/21/2017 12:00:00 Document Registration [id number] 05/30/2016 15:02:00 05/30/2016 23:59: 00 DIS Outpatient GREYSON ANDRADE [id number] 04/01/2019 10:12:00 020 11:15:00 DIS Emergency ELHAM HERNANDEZ DO [facility] ER CHEST PAIN [id number] 07/28/2018 11:33:00 019 12:40:00 DIS Emergency HEATHER JONES APRN [facility] ER MIGRAINE [id number] 06/09/2017 11:04:00 018 13:58:00 DIS Emergency HEATHER JONES APRN [facility] ER HEADACHE [id number] 12/01/2015 13:22:00 016 23:59:59 CLS Outpatient FLORIN WISDOM MD [facility] RAD COLLOID CYST OF BRAIN [id number] 11/08/2015 10:42:00 016 12:31:00 DIS Emergency HEATHER JONES APRN [facility] ER HEADACHE/VOMITING [id number] 09/30/2015 15:27:00 016 18:28:00 DIS Emergency LENA RODRIGES MD [facility] ER MIGRAINE [id number] 09/22/2015 10:29:00 016 15:00:00 DIS Emergency AZALEA CLEMENT [facility] ER HEADACHE [id number] 09/08/2015 12:38:00 016 15:39:00 DIS Emergency LENA RODRIGES MD [facility] ER [id number] 08/24/2019 12:32:[address] Emergency JONATHAN BECK, CARLYN Kent [facility] ER HEADACHE [id number] 12/04/2010 14:38:00 Document Registration
--- NOTE | 2019-08-24 15:30 | NUR ---
Pt reports minimal improvement after receiving medications. Dr. Gabriel notified.
[2019-08-24] MEDS ORDERED: fentaNYL INJECTION 100 MCG/2 ML AMP IVP ONE (15:45)
[2019-08-24] MEDS ORDERED: methylPREDNISolone 125 MG (Solu-MEDROL) VIAL IVP ONE (15:45)
--- NOTE | 2019-08-24 16:10 | NUR ---
Pt reports pain is much improved and states she is ready to go home. Pt's daughter will transport pt home.
[2019-08-24 16:20] VITALS: BP 115/85
== END 2019-08-24 16:20 | disposition home or self-care (01) ==
LOC: ER 12:32 → EDUNIT# 12:32 → ER 16:20
DX: R51 Headache (principal); F41.9 Anxiety disorder, unspecified; F32.9 Major depressive disorder, single episode, unspecified; F17.210 Nicotine dependence, cigarettes, uncomplicated; Z88.2 Allergy status to sulfonamides; Z86.69 Personal history of other diseases of the nervous system and sense organs
CPT/HCPCS: 99282

== ENCOUNTER → 2020-03-29 | Outpatient (CLI) | payer OTHER ==
--- NOTE | 2020-03-29 16:28 | Diagnostic Imaging Report ---
INDICATION: Left shoulder pain. COMPARISON: None. FINDINGS: Multiple radiographic views of the left shoulder were obtained. There is no fracture, dislocation, or other acute bony abnormality identified. The soft tissues appear unremarkable. No radiopaque foreign bodies identified. The visualized portions of the left lung are clear. IMPRESSION: No acute fractures or dislocations of the left shoulder. Dictated by: Dictated on workstation # [id number]
== END ==
LOC: RAD 15:59
PROVIDERS: ATTEND Nurse Practitioner
DX: M25.512 Pain in left shoulder (principal)
CPT/HCPCS: 73030